=== PATIENT | male | born 1955 ===

== ENCOUNTER 2024-11-22 13:02 | Outpatient (AMB) | payer BC, SELFPAY ==
--- NOTE | 2024-11-22 13:05 | A.OFFPC_ITS ---
Vital Signs 11/22/24 13:16 11/22/24 13:24 Height 5 ft 7.72 in Weight 218 lb 2 oz BMI 33.4 BP 156/56 H 154/54 H Blood Pressure Location Rt brachial Rt brachial Position Sitting Sitting Respiration 16 Pulse 67 Pulse Source Pulse Oximeter Pulse Oximetry (%) 97 Oxygen Delivery Method Room Air Intake Visit Reasons: New Appt New Patient requesitng an PE Intake Note: New patient visit Reporting Manager Required: No Allergies No Known Allergies Allergy (Verified 11/22/24 13:05) Tobacco use date assessed: 11/22/24 Fall risk assessment: No Falls in past year Last assessed Fall Risk: 11/22/24 Dental Screening Dental Screen Date: 11/22/24 Did you have a dental visit in the last 12 months?: Yes Did you have a dental problem in the last 6 months where you did not have access to dental care?: No Was dental information given to patient?: Patient declined HPI New Appt New Patient requesitng an PE HPI Details Patient is a 69-year-old male who presents today to [facility]. He is transferring from [place]. He has a significant past medical history of pancreatitis, chronic kidney disease stage IV with recent MAGDA,, type 2 diabetes, hypertension, hyperlipidemia Endo: Last A1c was 7.9. He is currently on Lantus 25 units in the morning and lispro 3 times a day sliding scale -following with [facility] endocrinology a nd is scheduled for a follow up on 12/03 CGM-6% very hyperglycemic, 35% hyperglycemic, in range 59%, 0% hypoglycemia. 7.4 CV: Blood pressure today in the office is 156/56. He is on metoprolol 150mg daily, amlodipine 10 mg mg day. Cholesterol is controlled with atorvastatin 40 mg. He is on a baby aspirin. Nephro: Following with Dr. Justice and has an appointment for a follow up on 12/13. He had a GI bug in July and then was hospitalized for an MAGDA. Last GFR was 28 following the MAGDA Colonoscopy: Declines due to anal leakage following initial colonoscopy PSA: Overdue LDCT: follows at [facility] and [facility], family history of lung cancer in father AAA screen: States never had PFS Social History Housing: House Patient Tobacco Use Status: Former Tobacco user Cigarette Packs Per Day: 1 Years Smoked: 50 e-Cigarette/Vaping Use: Never Used Second Hand Smoke Exposure: No service: No Current occupational status: retired Cognitive needs: No Hearing needs: Yes (bilateral hearing loss ) Vision needs: Yes (glasses) Questionnaire PHQ-9 Over the last 2 weeks, how often have you been bothered by any of the following problems? 1. Little interest or pleasure in doing things: not at all 2. Feeling down, depressed, or hopeless: not at all 3. Trouble falling or staying asleep, or sleeping too much: not at all 4. Feeling tired or having little energy: not at all 5. Poor appetite or overeating: not at all 6. Feeling bad about yourself - or that you are a failure or have let yourself or your family down: not at all 7. Trouble concentrating on things, such as reading the newspaper or watching television: not at all 8. Moving or speaking so slowly that other people could have noticed. Or the opposite - being so fidgety or restless that you have been moving around a lot more than usual: not at all 9. Thoughts that you would be better off or of hurting yourself in some way: not at all Total score: 0 Depression Screening Interpretation: Negative Depression Screening Done: Yes 34802 - PHQ-9 Billing: Yes Source: Developed by Drs. Doron Medellin, Keyla Rich, Jaziel Timmons and colleagues, with an educational sanjeev from [email or web address]. Thrive Questionnaire Date Thrive assessed: 11/15/24 I am a: Patient What is your living situation today?: I choose not to answer this question Within the past 12 months, did the food you bought not last and you didn't have the money to get more?: I choose not to answer this question Within the past 12 months, did you worry whether your food would run out before you got money to buy more?: I choose not to answer this question Do you have trouble paying for medicines?: I choose not to answer this question Do you have trouble getting transportation to medical appointments?: I choose not to answer this question Do you have trouble paying your heating and electricity bill?: I choose not to answer this question Do you have trouble taking care of your child, family member or friend?: I choose not to answer this question Do you have trouble with day-to-day activities such as bathing, preparing meals, shopping, managing finances, etc.?: I choose not to answer this question Are you currently unemployed and looking for a job?: I choose not to answer this question Are you interested in more education?: I choose not to answer this question Please select the resources that you would like help with: None Currently or been in a relationship where the following occur: I choose not to answer THRIVE Score: 0 AUDIT C Alcohol Use Questionnaire (AUDIT-C) 1. How often do you have a drink containing alcohol?: Never 3. How often do you have six or more drinks on one occasion?: Never Total Score: 0 CHERELLE-7 AMB Questionnaire CHERELLE-7 Date CHERELLE - 7 assessed: 11/22/24 Feeling nervous, anxious, or on edge: 0 = Not at all Not being able to stop or control worryin = Not at all Worrying too much about different things: 0 = Not at all Trouble relaxin = Not at all Being so restless that it is hard to sit still: 0 = Not at all Becoming easily annoyed or irritable: 0 = Not at all Feeling afraid as if something awful might happen: 0 = Not at all Total CHERELLE-7 score (0-4 normal; 5-9 mild; 10-14 moderate; 15-21 severe): 0 Source: Developed by Drs. Doron Medellin, Keyla Rich, Jaziel Timmons and colleagues, with an educational sanjeev from [email or web address]. CHERELLE-7 Assessment Billing CHERELLE-7 Assessment Tool: CHERELLE-7 Assessment 48856 Physical exam (Primary Care) Vital Signs: Last Vital Signs Pulse 67 11/22/24 13:16 Resp 16 11/22/24 13:16 BP 154/56 H 11/22/24 13:24 Pulse Ox 97 11/22/24 13:16 Oxygen Delivery Method Room Air 11/22/24 13:16 BMI result Body Mass Index 33.4 Tobacco/Smoking Status: Tobacco use Status Tobacco use date assessed 11/22/24 11/22/24 13:08 Patient Tobacco Use Status Former Tobacco user 11/22/24 13:20 e-Cigarette/Vaping Use Never Used 11/22/24 13:08 PHQ-9: PHQ-9 Score PHQ-9: Total score 0 11/22/24 13:38 Depression Screening Interpretation: Negative Thrive Assessment: Date of Thrive Assessment Date Thrive assessed 11/15/24 11/22/24 13:08 Currently or been in a relationship where the following occur: I choose not to answer Const Orientation/consciousness: patient oriented x3 HENMT Ears: hearing grossly normal bilaterally Neck Thyroid: Thyroid normal Lymphatic: no lymphadenopathy noted Resp Auscultation: clear to auscultation bilaterally Cardio Rate: regular rate Rhythm: regular rhythm Heart sounds: S1 normal heart sound present and S2 normal heart sound present GI Inspection: Yes normal to inspection Palpation (GI): Soft to palpation and Other GI palpation findings present (nontender, no cva tenderness) Auscultation: normoactive bowel sounds Rectal Exam - Male: Yes deferred Skin General skin exam: no rashes or lesions noted Neuro General: patient oriented x3, gait normal and no focal motor deficits Coding Level of Care Code New Pt Level 4 (08531) Complex EM visit Add On G2211 Diagnoses HTN (hypertension) I10 HLD (hyperlipidemia) E78.5 Type 2 diabetes mellitus with chronic kidney disease, with long-term current use of insulin E11.22; Z79.4 Chronic kidney disease, stage 4 (severe) N18.4 Microalbuminuria due to type 2 diabetes mellitus E11.29; R80.9 Former cigarette smoker Z87.891 Additional Codes CHERELLE-7 Assessment Billing - CHERELLE-7 Assessment Tool: CHERELLE-7 Assessment 20185 ([id number]) PHQ-9 - 71509 - PHQ-9 Billing: Yes ([id number]) Assessment & Plan Assessment & Plan (1) HTN (hypertension): Code(s): I10 - Essential (primary) hypertension Category: Medical Plan: Elevated today above goal. He is going to monitor it for the next couple weeks and let me know. States that blood pressures were previously normal. (2) HLD (hyperlipidemia): Code(s): E78.5 - Hyperlipidemia, unspecified Category: Medical Plan: Lipids and LFTs ordered (3) Type 2 diabetes mellitus with chronic kidney disease, with long-term current use of insulin: Code(s): E11.22 - Type 2 diabetes mellitus with diabetic chronic kidney disease; Z79.4 - terminal carman (current) use of insulin Category: Medical Plan: Being managed by endocrinology. I did discuss with him possibly increasing the long-acting insulin of Lantus up to 30 units but he prefers to wait for endo. (4) Chronic kidney disease, stage 4 (severe): Code(s): N18.4 - Chronic kidney disease, stage 4 (severe) Category: Medical Plan: Seems to be slightly improved from MAGDA. Has follow up with Nephrology (5) Microalbuminuria due to type 2 diabetes mellitus: Code(s): E11.29 - Type 2 diabetes mellitus with other diabetic kidney complication; R80.9 - Proteinuria, unspecified Category: Medical Plan: As above (6) Former cigarette smoker: Code(s): Z87.891 - Personal history of nicotine dependence Category: Social Hx Plan: AAA screen ordered Following with [facility] low-dose CAT scan program. States that he does not need a new order for this. Orders: Orders TSH reflex Free T4 Today E11.22 - Type 2 diabetes mellitus with diabetic chronic kidney disease, E11.29 - Type 2 diabetes mellitus with other diabetic kidney complication, E78.5 - Hyperlipidemia, unspecified, I10 - Essential (primary) hypertension, N18.4 - Chronic kidney disease, stage 4 (severe), R80.9 - Proteinuria, unspecified, Z79.4 - terminal carman (current) use of insulin, Z87.891 - Personal history of nicotine dependence Comprehensive Met. Panel Today E11.22 - Type 2 diabetes mellitus with diabetic chronic kidney disease, E11.29 - Type 2 diabetes mellitus with other diabetic kidney complication, E78.5 - Hyperlipidemia, unspecified, I10 - Essential (primary) hypertension, N18.4 - Chronic kidney disease, stage 4 (severe), R80.9 - Proteinuria, unspecified, Z79.4 - correction (current) use of insulin, Z87.891 - Personal history of nicotine dependence Prostate Specific Antigen Scr Today E11.22 - Type 2 diabetes mellitus with diabetic chronic kidney disease, E11.29 - Type 2 diabetes mellitus with other diabetic kidney complication, E78.5 - Hyperlipidemia, unspecified, I10 - Essential (primary) hypertension, N18.4 - Chronic kidney disease, stage 4 (severe), R80.9 - Proteinuria, unspecified, Z01.89 - Encounter for other specified special examinations, Z79.4 - terminal carman (current) use of insulin, Z87.891 - Personal history of nicotine dependence US abdominal aortic aneurysm Today I10 - Essential (primary) hypertension, Z87.891 - Personal history of nicotine dependence Lipid Panel Today E11.22 - Type 2 diabetes mellitus with diabetic chronic kidney disease, E11.29 - Type 2 diabetes mellitus with other diabetic kidney complication, E78.5 - Hyperlipidemia, unspecified, I10 - Essential (primary) hypertension, N18.4 - Chronic kidney disease, stage 4 (severe), R80.9 - Proteinuria, unspecified, Z79.4 - correction (current) use of insulin, Z87.891 - Personal history of nicotine dependence Complete Blood Count Auto Diff Today E11.22 - Type 2 diabetes mellitus with diabetic chronic kidney disease, E11.29 - Type 2 diabetes mellitus with other diabetic kidney complication, E78.5 - Hyperlipidemia, unspecified, I10 - Essential (primary) hypertension, N18.4 - Chronic kidney disease, stage 4 (severe), R80.9 - Proteinuria, unspecified, Z79.4 - terminal carman (current) use of insulin, Z87.891 - Personal history of nicotine dependence
[2024-11-22 13:16] VITALS: BP 156/56; PULSE 67; RESP 16; O2SAT 97; BMI 33.4
[2024-11-22 13:24] VITALS: BP 154/54
--- OUTSIDE RECORDS SUMMARY | 2024-11-22 14:11 | XMS_ITS | Clinical Summary ---
Author Organization [employer] Address [address] [place] [address] Care Team Providers Care Account Supervisor Name Role Phone Unavailable Primary Care Provider Unavailabl e Allergies No known active allergies Medications omega-3 (Fish Oil) 1000 MG capsule as directed Orally Active losartan (Cozaar) 100 MG tablet 1 tablet in the morning. 0 Active glimepiride (Amaryl) 4 MG tablet 1 tablet in the morning and 1 tablet in the evening. 0 Active metoprolol succinate XL (Toprol XL) 100 MG 24 hr tablet 1 tablet in the morning. 0 Active atorvastatin (Lipitor) 80 MG tablet 1 tablet in the morning. 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 e yes 06/14/2023 Tobacco use disorder 06/13/2023 06/13/2023 Hyperlipidemia 06/13/2023 06/13/2023 Morbid obesity 06/13/2023 06/13/2023 Anxiety disorder 06/13/2023 06/13/2023 Avitaminosis D 06/13/2023 06/13/2023 Carpal tunnel syndrome 06/13/2023 Obstructive sleep apnea 06/13/2023 06/13/20 Type 2 diabetes mellitus without complication 06/13/2023 Nondependent alcohol abuse, episodic 06/13/2023 06/13/2023 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 06/13/2023 06/13/2023 Cataract, nuclear sclerotic, both eyes 06/13/2023 Bilateral presbyopia 06/13/2023 06/13/2023 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 06/13/2023 Family History Medical History Relation Name Comments Cataracts Mother Relation Name Status Comments Mother Social History Tobacco Use Types Packs/Day Years Used Date Smoking Tobacco: Every Day Cigarettes Tobacco Cessation:Ready to Q uit: Not Asked; Counseling Given: Not Answered Comments:Smoked for 30 years Sex and Gender Information Value Date Recorded Sex Assigned at Male 06/10/2023 10:36 AM EST Legal Sex Male 8:35 PM EDT Gender Identity Male 06/10/2023 10:36 AM EST Sexual Orientation Straight 06/10/2023 10 :36 AM EST Last Filed Vital Signs Vital Sign Reading Time Taken Comments Blood Pressure 142/70 06/14/2023 10:30 AM EST Pulse - - Temperature 36.2 ??C (97.2 ??F) 06/14/2023 10:[address] Respiratory Rate - - Oxygen Saturation - - Inhaled Oxygen Concentration - - Weight - - Height - - Body Mass Index - - Plan of Treatment Health Maintenance Due Date Last Done Comments CT Colonography 1955 Colonoscopy 1955 Colorectal Cancer Screening 1955 Depression Screening 1955 Diabetes: Hemoglobin A1C 1955 FIT DNA/Cologuard 1955 FIT 1955 FOBT 1955 Lipid Panel 1955 SDOH Screening 1955 Sigmoidoscopy 1955 Diabetes: Foot Exam 1965 Alcohol/Substance Use Screening 1967 Tobacco Screening 1967 Hepatitis C Screening 1973 Diabetes: Urine Protein Screening 1974 Zoster Vaccines (1 of 2) 2005 Pneumococcal Vaccine: 50+ Years (2 of 2 - PCV) 05/06/2011 05/06/2010, 04/17/2010 DTaP/Tdap/Td Vaccines (2 - Td or Tdap) 02/12/2024 02/11/2014 COVID-19 Vaccine (3 - season) 2024 03/13/2021, 02/20/2021 Influenza Vaccine (#1) 2024 8, 05/04/2016, 04/15/2015, Additional history exists Eye Exam 06/14/2025 06/14/2023, 05/19, 06/14/2023, Additional history exists RSV Patients and Patients Aged 60 years or older (1 - 1-dose 75+ series) 2030 HIB Vaccines Aged Out No longer eligi ble based on patient's age to complete this topic HPV Vaccines Aged Out No longer eligi ble based on patient's age to complete this topic Hepatitis A Vaccines Aged Out No long er eligible based on patient's age to complete this topic Hepatitis B Vaccines Aged Out No long er eligible based on patient's age to complete this topic IPV Vaccines Aged Out No longer eligi ble based on patient's age to complete this topic Meningococcal Vaccine Aged Out No michael alessia eligible based on patient's age to complete this topic RSV under 20 months Aged Out No longe r eligible based on patient's age to complete this topic Rotavirus Vaccines Aged Out No longer eligible based on patient's age to complete this topic Insurance [facility] Care Teams Account Supervisor Relationship Specialty Start Date End Date JESUS SERRANO DO [address] [id number] Primary Care Provider 06/13/23
--- OUTSIDE RECORDS SUMMARY | 2024-11-22 14:11 | XMS_ITS | Clinical Summary ---
Author Organization [facility] [address] [facility] lding Address [address] [place] [address] Phone Care Team Providers Care Steam Blocker Name Role Phone Sarah Long MD Primary Care Provider Allergies No known active allergies Medications alcohol swabs pads, medicated Apply 1 Each topically 2 times daily as needed (insulin use). 02/18/20 20 Active Autolet (OneTouch Delica Plus Lanc Dev) lancing device Use to check blood sugar twice daily. 01/12/20 17 Active blood glucose control, normal (OneTouch Ultra Control) solution Use to calibrate meter. 06/30/20 16 Active blood-glucose meter (ONETOUCH VERIO IQ METER MISC) Test bs tid 10/27/19 22 Active pen needle, diabetic 32 gauge x 5/32 needle USE WITH INSULIN DAILY 09/26/19 24 Active aspirin 81 mg EC tablet Take 81 mg by mouth daily. Active blood sugar diagnostic (OneTouch Verio test strips) test strip CHECK BLOOD SUGAR 2 TO 3 TIMES DAILY AND NEEDED FOR LOW BLOOD SUGARS 400 each 06/12/20 24 Active albuterol HFA (PROAIR HFA ; PROVENTIL HFA ; VENTOLIN HFA) 90 mcg/actuation inhaler Inhale 2 Puffs into the lungs every 4 hours as needed for Cough or Wheezing. 25.5 g 06/12/20 24 Active atorvastatin (LIPITOR) 40 mg tablet Take 1 tablet (40 mg total) by mouth 1 (one) time each day. 90 each 06/12/20 24 Active metoprolol succinate (TOPROL-XL) 25 mg 24 hr tablet Take 2 tablets (50 mg total) by mouth 1 (one) time each day. 360 tablet 06/12/20 24 Active sodium bicarbonate 650 mg tablet Take 1 tablet (650 mg total) by mouth 2 (two) times a day. Per 08/24/19 25 Active insulin glargine U-300 conc (TOUJEO MAX SoloStar) 300 unit/mL (3 mL) CONCENTRATED injection penIndications:T ype 2 diabetes mellitus without complication, with jail current use of insulin pump ([facility] V24, [facility] V28) Take 10 units every morning 08/24/19 25 Active insulin lispro (HumaLOG KwikPen) 100 unit/mL injection pen Per SSI. BS 100-149- take 6units, 150-199- 7; 200-249-8, 250-299-9, 300-349-10,35 1-241-25nrjmm 08/24/19 25 026 Active metoprolol succinate (TOPROL-XL) 100 mg 24 hr tablet Take 1 tablet (100 mg total) by mouth 1 (one) time each day. Do not crush or chew. 90 tablet 09/20/19 25 Active amLODIPine (NORVASC) 5 mg tablet TAKE 2 TABLETS BY MOUTH 1 TIME EACH DAY. 180 tablet 10/27/19 25 Active amLODIPine (NORVASC) 5 mg tablet Take 2 tablets (10 mg total) by mouth 1 (one) time each day. 180 tablet 07/30/19 25 025 Discontinued Active Problems Problem Noted Date Diagnosed Date Type 2 diabetes mellitus wit hout complication, with jail current use of insulin pump ([facility] V24, [facility] V28) 10/13/2023 Renal cyst 12/23/2021 CKD (chronic kidney disease) stage 3, GFR 30-59 ml/min ([facility] V24, [facility] V28) 09/20/2018 Coronary artery calcification seen on CAT scan 1 08/22/2013 Hepatic steatosis 06/21/2014 Overview (06/08/2024): Noted on CT scan Diverticulosis 06/18/2014 Overview (06/08/2024): Noted on screening CT Pulmonary emphysema ([facility] V24, [facility] V28) 1 08/20/2012 Overview (06/08/2024): On chest CT IMO update Lung nodule 06/04/2013 Overview (06/08/2024): Stable on CT 2013 <4mm; micronodule Obstructive sleep apnea 08/01/2012 Overview (06/08/2024): CPAP 17-18 cm Poorly controlled type 2 santhosh betes mellitus ([facility] V24, [facility] V28) 08/06/2011 Overview (06/08/2024): Labs from [facility] are scanned Vitamin D deficiency 08/06/2011 Hypertension, essential 06/17/2011 Hyperlipidemia with target LDL less than 70 07/2010 Overview (06/08/2024): IMO update Alcohol abuse 05/14/2011 Mixed hyperlipidemia 05/14/2011 Encounters Date Type Department Care Team Description 09/18/2024 10:38 AM EST - 09/18/2024 11:59 PM EST Hospital Encounter [facility] CT Scan [address] [place] [address] Encounter for screening for malignant neoplasm of respiratory organs; Nicotine dependence, cigarettes, uncomplicated Discharge Disposition: Home or Self Care from Last 3 Months Immunizations Name Administration Dates Next Due Influenza Quadravalent, MDCK , 0.5ml, preservative free (Flucelvax) 6mo and older 05/23/2018 Influenza Quadravalent, MDCK , 0.5ml, with preservative (Flucelvax) 6mo and older 05/16/2017 Influenza trivalent, 0.5mL ( Fluad) 65yo and older 04/19/2024 Influenza trivalent, 0.5mL, preservative free (Fluarix; FluLaval; Fluzone) ages 6mo and older (Afluria) 3 years and older 05/04/2016,04/15/2015,06/18/2014 Pfizer SARS-CoV-2 COVID-19, mRNA, LNP-S, preservative free 03/13/2021,02/20/2021 Pneumococcal conjugate 20 va lent (Prevnar 20, PCV 20) 2mo and older 10/13/2023 Pneumococcal polysaccharide 23 valent (Pneumovax 23) 2yo and older 04/17/2010 Tdap Tetanus diptheria acell ular pertussis (Boostrix; Adacel) 7yo and older 02/11/2014 Surgical History Surgery Date Site/Laterality Comments OTHER SURGICAL HISTORY 2007 PROCEDURE: MRA OF HEAD, NECK; COMMENT: prox l cerebral artery stenosis, rest clear OTHER SURGICAL HISTORY 2007 PROCEDURE: SONO ABDOMEN COMPLETE; COMMENT: fatty liver, renal cyst ? hepatomegaly OTHER SURGICAL HISTORY 2006 PROCEDURE: CO ECHO TRANSTHORAC R-T 2D W/WO M-MODE REC COMP; COMMENT: ps/pr mild, nl ef Medical History Medical History Date Comments Diabetes mellitus (CMS/HCC V 24, CMS/HCC V28) 05/14/2011 DX:Diabetes mellitus (HCC) Hypertriglyceridemia 05/14/2011 DX:Hypertri glyceridemia Hypertension 06/17/2011 DX:Hypertension Alcohol abuse DX:Alcohol abuse Tobacco dependence DX:Tobacco de pendence Type II diabetes mellitus, uncontrolled DX:Type II diabetes mellitus, uncontrolled TK (obstructive sleep apnea) 2007 DX :TK (obstructive sleep apnea); COMMENT: nasal cpap 16 Fatty liver 2007 DX:Fatty liver; COMMENT: ? hepatomegaly Lyme disease 1999 DX:Lyme disease; COMMENT: treated Pancreatitis DX:Pancreatitis Vitamin deficiency DX:Vitamin de ficiency Vitamin D deficiency 08/06/2011 DX:Vitamin D deficiency Family History Medical History Relation Name Comments Alcohol/Drug Father Lung cancer Father cause of Other: Kidney disease Father Other: Lung disease Father Breast cancer Mother 01/2020 Other: vertigo Sister 1 Thyroid disease Sister 1 No Known Problems Sister 2 Elsa Relation Name Status Comments Father (Age 59) Mother Sister 1 Alive Sister 2 Elsa Alive Social History Tobacco Use Types Packs/Day Years Used Date Smoking Tobacco: Every Day Cigarettes 2 55.3 Started: [birth year]/18/1969 Smokeless Tobacco: Never Tobacco Cessation:Ready to Q uit: Not Asked; Counseling Given: Not Answered Alcohol Use Standard Drinks/Week Comments Yes 30 (1 standard drink = 0.6 oz pu re alcohol) Housing Instability Answer Date Recorde d Are you worried that in the next 2 months you may not have stable housing? Patient declined 07/28/2024 Food Access & Nutrition Answer Date Rec orded Do you have access to a vari ety of food including fruits and vegetables? Patient declined 07/28/2024 Access to Healthcare Answer Date Record ed Within the last 3 months, ho w many times did you visit the emergency department for your medical care? 0 07/28/2024 Health Literacy Answer Date Recorded How often do you need to hav e someone help you when you read instructions, pamphlets, or other written material from your doctor or pharmacy? Patient declined 07/28/2024 Caregiver: How often do you need to have someone help you when you read instructions, pamphlets, or other written material from your doctor or pharmacy? Not on file 025 Financial Risk Answer Date Recorded How hard is it for you to pa y for the very basics like food, housing, medical care, and air conditioning / heating? Patient declined 07/28/2024 Transportation Answer Date Recorded Has the lack of transportati on kept you from meetings, work, or from getting things needed for daily living? Patient declined 07/28/2024 Has the lack of transportati on kept you from medical appointments or from getting medications? Patient declined 07/28/2024 Social Isolation Answer Date Recorded How often do you feel lonely or isolated from those around you? Patient declined 07/28/2024 Food Risk Answer Date Recorded Within the past 12 months we worried whether our food would run out before we got money to buy more. Patient declined 025 Within the past 12 months th e food we bought just didn't last and we didn't have money to get more. Patient declined 07/18 Dependent Care Answer Date Recorded Do you need help finding or paying for care for your loved ones. For example, early childhood lead teacher or elderly care for an older adult? Patient declined 07/28/2024 Education Answer Date Recorded Do you think completing more education or training, like finishing a GED, going to college, or learning a trade, would be helpful for you? Patient declined 07/28/2024 Employment and Income Answer Date Recor ded During the last four weeks, have you been actively looking for work? Patient declined 07/28/2024 Living Situation Answer Date Recorded What is your living situation? 0 07/28/2024 Sex and Gender Information Value Date Recorded Sex Assigned at Male 06/07/2024 5:40 AM EST Legal Sex Male 1:51 AM EST Gender Identity Male 06/07/2024 5:40 AM EST Sexual Orientation Straight 06/07/2024 5: 40 AM EST Obstetrics History Last Filed Vital Signs Vital Sign Reading Time Taken Comments Blood Pressure 147/59 08/24/2024 10:32 AM EST Pulse 54 08/24/2024 10:32 AM EST Temperature 35.9 ??C (96.7 ??F) 08/24/2024 10:[address] Respiratory Rate 16 08/24/2024 10:32 AM EST Oxygen Saturation - - Inhaled Oxygen Concentration - - Weight 99.5 kg (219 lb 6.4 oz) 08/24/2024 10:32 AM EST Height 175.3 cm (5' 9.02 ) 08/24/2024 10:[address] Body Mass Index 32.38 08/24/2024 10:32 AM EST Plan of Treatment Health Maintenance Due Date Last Done Comments Hepatitis A Vaccines (1 of 2 - Risk 2-dose series) 1974 Zoster Vaccines (1 of 2) 2005 RSV Immunization Adult Patients (1 - Risk 60-74 years 1-dose series) 2015 COVID-19 Vaccine (3 - Pfizer risk series) 04/10/2021 03/13/2021, 02/20/2021 Abdominal Aortic Aneurysm (AAA) Screen 06/26/2022 Medicare Annual Wellness Visit 06/26/2022 Diabetes: Annual Urine Albumin-Creatinine Ratio (uACR) 07/30/2023 07/30/2022 Colorectal Cancer Screening: Colonoscopy 09/07/2023 09/07/2018 Diabetes: Blood Sugar Control Test (HGBA1C) 01/11/2024 07/12/2023 DTaP,Tdap,and Td Vaccines (2 - Td or Tdap) 02/12/2024 02/11/2014 Diabetes: Annual Retina Eye Exam 06/13/2024 06/13/2023 Diabetes: Annual Foot Exam 10/12/2024 10/13/2023 Depression Screening 07/28/2025 07/28/2024 Social Influencers of Health Screening 07/28/2025 07/28/2024 Falls Risk Assessment 07/30/2025 07/30/2024 Diabetes: Annual GFR (Glomerular Filtration Rate) 08/22/2025 08/22/2024, 08/18/2024, 10/05/2023 Hypertension/CHF/CAD Annual BMP Blood Test 08/22/2025 08/22/2024, 08/18/2024, 10/05/2023 Lung Cancer Screening (Low Dose CT) 09/18/2025 09/18/2024, 07/13/2023, 06/17/2022, Additional history exists Cholesterol Screening (Lipid Panel) 04/30/2027 04/30/2022 Hepatitis C Screening Completed 02/07/2017 Pneumococcal Vaccine: 50+ Years Completed 10/13/2023, 04/17/2010 Influenza Vaccine Completed 04/19/2024, , 05/16/2017, Additional history exists HIB Vaccines Aged Out No longer eligi [...] on patient's age to complete this topic MMR Vaccines Aged Out No longer eligi ble based on patient's age to complete this topic Meningococcal ACWY Vaccine Aged Out N o longer eligible based on patient's age to complete this topic Meningococcal B Vaccine Aged Out No l onger eligible based on patient's age to complete this topic RSV Immunization Patients Under 20 months Aged Out No longer eligible based on patient's age to complete this topic Varicella Vaccines Aged Out No longer eligible based on patient's age to complete this topic Procedures Procedure Name Priority Date/Time Associated Diagnosis Comments CT LUNG SCREENING Routine 09/18/2024 10: 49 AM EST Encounter for screening for malignant neoplasm of respiratory organs Nicotine dependence, cigarettes, uncomplicated DIABETES FOOT EXAM Routine 10/13/2023 ANNUAL BMP BLOOD TEST Routine 10/05/2023 HEMOGLOBIN A1C Routine 07/12/2023 DIABETES EYE EXAM Routine 06/13/2023 URINE ALBUMIN CREATININE RATIO Routine 07/30/2022 LIPID PANEL Routine 04/30/2022 COLONOSCOPY Routine 09/07/2018 HEPATITIS C SCREENING Routine 02/07/2017 from Last 3 Months or Most Recently Relevant to Health Maintenance Results * CT Lung Screening (09/18/2024 10:49 AM EST) Anatomical Region Laterality Modality Chest Computed Tomogra phy 09/19/2024 4:11 PM EST Impressions 09/19/2024 4:18 PM EST Impression: No suspicious pulmonary nodule. No significant change. Lung-RADS Category: ??Lung-RADS 1: No nodules or definitely benign nodules. Continue annual screening with Low Dose Chest CT in 12 months. Telerad CAROL ([id number]) -------- FINAL REPORT -------- Dictated By: Dorys Williamson Dictated Date: 09/19/2024 16:11 ET Assigned Physician: Dorys Williamson Reviewed and Electronically Signed By: Dorys Williamson Signed Date: 09/19/2024 16:18 ET Workstation ID: [id number] Transcribed By: Self Edit Transcribed Date: 09/19/2024 16:11 ET Narrative 09/19/2024 4:18 PM EST History: ??69 year-old 99 pack-year current smoker, asymptomatic, for lung cancer screening. Father had lung carcinoma. Mother had breast carcinoma. Comparison: 06/30/23 Technique: Helical volumetric imaging of the thorax was performed, using low- dose technique, without IV contrast. DLP: 169.48 mGy/cm ??CTDIvol: 4.83 mGy [employer] VCT Iterative reconstruction technique Findings: Lungs and Airways: The trachea and central bronchial tree remain patent. Diffuse bronchial wall thickening is again seen, consistent with bronchitis in this setting. A diffuse pattern of faint centrilobular groundglass opacity is again seen, favoring the upper lobes, consistent with respiratory bronchiolitis, unchanged. No suspicious developing pulmonary nodules are seen. Pleura: No pleural effusions are seen. Trace pericardial effusion versus pericardial thickening, unchanged. Base of neck, mediastinum and heart: The heart remains normal in size. Three- vessel coronary artery calcification is again noted. No developing thoracic lymphadenopathy is seen. Soft tissues: The overlying soft tissues are unremarkable. Abdomen: This study was performed without contrast and with lower than standard dose. These factors reduce the sensitivity for detection of small lesions in the upper abdomen. No significant abnormality is seen. Thick, flowing hyperostosis is seen along the anterior aspect of the thoracic spine, suggestive of diffuse idiopathic skeletal hyperostosis (DISH). Procedure Note Dorys Williamson MD - 09/19/2024 History: 69 year-old 99 pack-year current smoker, asymptomatic, for lungcancer screening. Father had lung carcinoma. Mother had breastcarcinoma. Comparison: 06/30/23 Technique: Helical volumetric imaging of the thorax was performed, usinglow-dose technique, without IV contrast. DLP: 169.48 mGy/cm CTDIvol: 4.83 mGy [employer] VCT Iterative reconstruction technique Findings: Lungs and Airways: The trachea and central bronchial tree remain patent.Diffuse bronchial wall thickening is again seen, consistent withbronchitis in this setting. A diffuse pattern of faint centrilobulargroundglass opacity is again seen, favoring the upper lobes, consistentwith respiratory bronchiolitis, unchanged. No suspicious developing pulmonary nodules are seen. Pleura: No pleural effusions are seen. Trace pericardial effusion versuspericardial thickening, unchanged. Base of neck, mediastinum and heart: The heart remains normal in size.Three- vessel coronary artery calcification is again noted. No developingthoracic lymphadenopathy is seen. Soft tissues: The overlying soft tissues are unremarkable. Abdomen: This study was performed without contrast and with lower thanstandard dose. These factors reduce the sensitivity for detection of smalllesions in the upper abdomen. No significant abnormality is seen. Thick, flowing hyperostosis is seen along the anterior aspect of thethoracic spine, suggestive of diffuse idiopathic skeletal hyperostosis(DISH). IMPRESSION: Impression: No suspicious pulmonary nodule. No significant change. Lung-RADS Category: Lung-RADS 1: No nodules or definitely benign nodules.Continue annual screening with Low Dose Chest CT in 12 months. Telerad PA ([id number]) -------- FINAL REPORT -------- Dictated By: Dorys Williamson Dictated Date: 09/19/2024 16:11 ET Assigned Physician: Dorys Williamson Reviewed and Electronically Signed By: Dorys Williamson Signed Date: 09/19/2024 16:18 ET Workstation ID: [id number] Transcribed By: Self Edit Transcribed Date: 09/19/2024 16:11 ET Result [facility] Deborah Diaz MD IMG CT PROCEDURES Final Result * Diabetes Foot Exam (10/13/2023) [facility] Diabetes: Annual Foot Exam Abstracted Result [facility] HEALTH MAINTENANCE Final Result * Annual BMP Blood Test (10/05/2023) [facility] Annual BMP Blood Test Abstracted Result [facility] HEALTH MAINTENANCE Final Result * Hemoglobin A1c (07/12/2023) [facility] Hemoglobin A1C 0.0 % Comment:No Interpretation Blood Venous blood specimen / Unknown Result [facility] LAB BLOOD ORDERABLES Shania l Result * Diabetes Eye Exam (06/13/2023) [facility] Diabetes: Annual Retina Eye Exam Abstracted Result [facility] HEALTH MAINTENANCE Final Result * Urine Albumin Creatinine Ratio (07/30/2022) [facility] Urine Albumin Creatinine Ratio Abstracted Result [facility] HEALTH MAINTENANCE Final Result * Lipid panel (04/30/2022) [facility] LDL/HDL Ratio 0 Comment:No Interpretation Triglycerides 0 mg/dL Comment:No Interpretation Cholesterol 0 mg/dL Comment:No Interpretation HDL 0 mg/dL Comment:No Interpretation LDL Cholesterol 0 mg/dL Comment:No Interpretation Blood Venous blood specimen / Unknown Historical Provider LAB BLOOD ORDERABLES Shania l Result * Colonoscopy (09/07/2018) Colonoscopy No Interpretation , Abstracted Anatomical Region Laterality Modality Other Historical Provider HEALTH MAINTENANCE Final Result * Hepatitis C Screening (02/07/2017) Hepatitis C Screening Abstracted Historical Provider HEALTH MAINTENANCE Final Result from Last 3 Months or Most Recently Relevant to Health Maintenance Insurance [facility] [place] [facility] MEDICARE ADVANTAGE Advance Directives Documents on File Type Date Recorded Patient Management Trainer Expl anation Health Care Decision (hx) 06/30/2023 LINDA MAHMOOD DIRECTIVE Care Teams Steam Blocker Relationship Specialty Start Date End Date Sarah Long MD [address] [place] [id number] PCP - General 01/16/22
--- OUTSIDE RECORDS SUMMARY | 2024-11-22 14:11 | XMS_ITS | Clinical Summary ---
Author Organization [facility] Address [address] [place] [address] Phone Care Team Providers Care [employer] Name Role Phone Sarah Long MD Primary Care Provider Allergies No known active allergies Medications atorvastatin (LIPITOR) 40 MG tablet Take 40 mg by mouth 1 (one) time each day 06/06/2024 Active amLODIPine (NORVASC) 5 MG tablet Take 10 mg by mouth in the morning. 07/30/2024 Active metoprolol succinate XL (TOPROL-XL) 100 MG 24 hr tablet Take 100 mg by mouth 1 (one) time each day DO NOT CRUSH OR CHEW Active metoprolol succinate XL (TOPROL XL) 25 MG 24 hr tablet 50 mg 1 (one) time each day Active insulin glargine (LANTUS) 100 UNIT/ML injection Inject 10 Units under the skin every night Active Insulin Admin Supplies ([place] [address] Ullin Pen Cap/Lispro) misc Active sodium polystyrene sulfonate (KAYEXALATE) powder Take 15 g by mouth every other day 675 g 3 08/23/2024 08/23/19 26 Active sodium bicarbonate 650 MG tablet Take 1 tablet (650 mg total) by mouth in the morning and 1 tablet (650 mg total) in the evening. 180 tablet 3 08/23/2024 08/23/19 26 Active ergocalciferol (Drisdol) 1.25 MG (76972 UT) capsule Take 1 capsule (50,000 Units total) by mouth 1 (one) time per week 12 capsule 1 08/23/2024 08/23/19 26 Active insulin lispro protamine-insuli n lispro (HumaLOG 50-50) (50-50) 100 UNIT/ML inj pen Inject under the skin 2 (two) times a day before meals Active aspirin 81 MG chewable tablet Chew 81 mg 1 (one) time each day Active Active Problems Problem Noted Date Diagnosed Date Acute nontraumatic kidney injury 08/23/2024 Stage 3a chronic kidney disease 08/23/2024 Type 2 diabetes mellitus wit h diabetic chronic kidney disease 08/23/2024 Hyperkalemia 08/23/2024 Vitamin D deficiency 08/23/2024 Metabolic acidosis 08/23/2024 Encounters Date Type Department Care Team Description 11/04/2024 Orders Only [facility] [address] [address] Robby Justice MD Other acute kidney failure (HCC); Stage 3a chronic kidney disease (HCC); Type 2 diabetes mellitus with diabetic chronic kidney disease (HCC); Hyperkalemia; Vitamin D deficiency, not otherwise specified; Other acidosis; Anemia in chronic kidney disease 09/06/2024 1:30 PM EST Office Visit [facility] [address] [phone] Robby Justice MD Other acute kidney failure (HCC) (Primary Dx); Stage 3a chronic kidney disease (HCC); Type 2 diabetes mellitus with diabetic chronic kidney disease (HCC); Hyperkalemia; Vitamin D deficiency, not otherwise specified; Other acidosis; Anemia in chronic kidney disease 09/03/2024 Documentation Only [facility] [address] [phone] Meliza Pennington MA from Last 3 Months Social History Tobacco Use Types Packs/Day Years Used Date Smoking Tobacco: Never Assessed Sex and Gender Information Value Date Recorded Sex Assigned at Not on file Legal Sex Male 2:08 PM EDT Gender Identity Not on file Sexual Orientation Not on file Last Filed Vital Signs Vital Sign Reading Time Taken Comments Blood Pressure 124/58 09/06/2024 1:26 PM EST Pulse 50 09/06/2024 1:26 PM EST Temperature - - Respiratory Rate - - Oxygen Saturation 98% 08/23/2024 1:54 PM EST Inhaled Oxygen Concentration - - Weight 95.7 kg (211 lb) 09/06/2024 1:26 PM EST Height - - Body Mass Index - - Plan of Treatment Upcoming Encounters Date Type Department Care Team (Late st Contact Info) Description 12/13/2024 2:00 PM EDT Office Visit [facility] [address] [place] [address] Robby Justice MD [address] [address] Health Maintenance Due Date Last Done Comments Colorectal Cancer Screening: Annual FOBT 2004 Colorectal Cancer Screening: Colonoscopy 2004 Colorectal Cancer Screening: Sigmoidoscopy 2004 Pneumococcal Vaccine: 50+ Ye ars (2 of 2 - PCV) 04/17/2011 04/17/2010 Hepatitis B Vaccine (1 of 3 - Risk 3-dose series) 2015 Diabetes: Hemoglobin A1C 08/17/2024 07/12/2023 Diabetes: Ophthalmology Exam 08/17/2024 06/14/2023 Diabetes: Pedal Pulse Checked 08/17/2024 Diabetes: Sensory Foot Exam 08/17/2024 Diabetes: Visual Foot Exam 08/17/2024 Influenza Vaccine Completed 04/19/2024, , 05/16/2017, Additional history exists Procedures Procedure Name Priority Date/Time Associated Diagnosis Comments PTH, INTACT Routine 11/06/2024 10:22 AM EDT Other acute kidney failure (HCC) Stage 3a chronic kidney disease (HCC) Type 2 diabetes mellitus with diabetic chronic kidney disease (HCC) Hyperkalemia Vitamin D deficiency, not otherwise specified Other acidosis Anemia in chronic kidney disease VITAMIN D 25 HYDROXY Routine 11/06/2024 10:22 AM EDT Other acute kidney failure (HCC) Stage 3a chronic kidney disease (HCC) Type 2 diabetes mellitus with diabetic chronic kidney disease (HCC) Hyperkalemia Vitamin D deficiency, not otherwise specified Other acidosis Anemia in chronic kidney disease PROTEIN / CREATININE RATIO, URINE Routine 11/06/2024 10:22 AM EDT Other acute kidney failure (HCC) Stage 3a chronic kidney disease (HCC) Type 2 diabetes mellitus with diabetic chronic kidney disease (HCC) Hyperkalemia Vitamin D deficiency, not otherwise specified Other acidosis Anemia in chronic kidney disease RENAL FUNCTION PANEL Routine 11/06/2024 10:22 AM EDT Other acute kidney failure (HCC) Stage 3a chronic kidney disease (HCC) Type 2 diabetes mellitus with diabetic chronic kidney disease (HCC) Hyperkalemia Vitamin D deficiency, not otherwise specified Other acidosis Anemia in chronic kidney disease IRON PANEL (FE, TIBC, TSAT) Routine 11/06/2024 10:22 AM EDT Other acute kidney failure (HCC) Stage 3a chronic kidney disease (HCC) Type 2 diabetes mellitus with diabetic chronic kidney disease (HCC) Hyperkalemia Vitamin D deficiency, not otherwise specified Other acidosis Anemia in chronic kidney disease FERRITIN Routine 11/06/2024 10:22 AM EDT Other acute kidney failure (HCC) Stage 3a chronic kidney disease (HCC) Type 2 diabetes mellitus with diabetic chronic kidney disease (HCC) Hyperkalemia Vitamin D deficiency, not otherwise specified Other acidosis Anemia in chronic kidney disease CBC AND DIFFERENTIAL Routine 11/06/2024 10:22 AM EDT Other acute kidney failure (HCC) Stage 3a chronic kidney disease (HCC) Type 2 diabetes mellitus with diabetic chronic kidney disease (HCC) Hyperkalemia Vitamin D deficiency, not otherwise specified Other acidosis Anemia in chronic kidney disease FERRITIN Routine 09/03/2024 3:35 PM EST Other acute kidney failure (HCC) Hyperkalemia IRON PANEL (FE, TIBC, TSAT) Routine 09/03/2024 3:35 PM EST Other acute kidney failure (HCC) Hyperkalemia RENAL FUNCTION PANEL Routine 09/03/2024 3:35 PM EST Other acute kidney failure (HCC) Hyperkalemia PROTEIN / CREATININE RATIO, URINE Routine 08/25/2024 11:51 AM EST Other acute kidney failure (HCC) Stage 3a chronic kidney disease (HCC) Type 2 diabetes mellitus with diabetic chronic kidney disease (HCC) Hyperkalemia Vitamin D deficiency, not otherwise specified Metabolic acidosis, not otherwise specified VITAMIN D 25 HYDROXY Routine 08/25/2024 11:51 AM EST Other acute kidney failure (HCC) Stage 3a chronic kidney disease (HCC) Type 2 diabetes mellitus with diabetic chronic kidney disease (HCC) Hyperkalemia Vitamin D deficiency, not otherwise specified Metabolic acidosis, not otherwise specified PTH, INTACT Routine 08/25/2024 11:51 AM EST Other acute kidney failure (HCC) Stage 3a chronic kidney disease (HCC) Type 2 diabetes mellitus with diabetic chronic kidney disease (HCC) Hyperkalemia Vitamin D deficiency, not otherwise specified Metabolic acidosis, not otherwise specified RENAL FUNCTION PANEL Routine 08/25/2024 11:51 AM EST Other acute kidney failure (HCC) Stage 3a chronic kidney disease (HCC) Type 2 diabetes mellitus with diabetic chronic kidney disease (HCC) Hyperkalemia Vitamin D deficiency, not otherwise specified Metabolic acidosis, not otherwise specified from Last 3 Months Results * Iron Panel (Fe, TIBC, TSAT) (11/06/2024 10:22 AM EDT) Only the most recent of2 resultswithin the time period is included. TIBC 290 250 - 450 ug/dL [facility] UIBC 222 111 - 343 ug/dL [facility] Iron 68 38 - 169 ug/dL [facility] Iron Saturation (TSat) 23 15 - 55 % [facility] Blood (Blood, Venous) 11/06/2024 10:22 AM EDT 11/06/2024 us Robby Justice MD LAB BLOOD ORDERABLES Final Resu lt [facility] [address] [place] [address] * (ABNORMAL) Urine Protein / creatinine ratio (11/06/2024 10:22 AM EDT) Only the most recent of2 resultswithin the time period is included. Creatinine, Ur 86.6 Not Estab. mg/dL [facility] Protein, Ur 86.1 Not Estab. mg/dL [facility] Urine Protein/Creati nine Ratio 994(H) 0 - 200 mg/g creat [facility] Urine (Urine, Clean Catch) 11/06/2024 10:22 AM EDT 11/06/2024 us Robby Justice MD LAB URINE ORDERABLES Final Resu lt [facility] [address] [place] [address] * Vitamin D 25 hydroxy (11/06/2024 10:22 AM EDT) Only the most recent of2 resultswithin the time period is included. Vitamin D, 25-OH, Total 39.8 30.0 - 100.0 ng/mL [facility] Comment: Vitamin D deficiency has been defined by the [place] of Medicine and an Endocrine Society practice guideline as a level of serum 25-OH vitamin D less than 20 ng/mL (1,2). The Endocrine Society went on to further define vitamin D insufficiency as a level between 21 and 29 ng/mL (2). 1. IOM ([place] of Medicine). 2010. Dietary reference ?? intakes for calcium and D. [place]: The ?? National Academies Press. 2. Sulema MF, Frankie NC, Vincenzo LACY, et al. ?? Evaluation, treatment, and prevention of vitamin D ?? deficiency: an Endocrine Society clinical practice ?? guideline. JCEM. 2010; 96(7):1911-30. Blood (Blood, Venous) 11/06/2024 10:22 AM EDT 11/06/2024 us Robby Justice MD LAB BLOOD ORDERABLES Final Resu lt [facility] [address] [place] [address] * (ABNORMAL) CBC and Differential (11/06/2024 10:22 AM EDT) WBC 6.7 3.4 - 10.8 x10E3/uL [facility] RBC 3.42(L) 4.14 - 5.80 x10E6/uL [facility] Hemoglobin 10.3(L) 13.0 - 17.7 g/dL [facility] Hematocrit 31.3(L) 37.5 - 51.0 % [facility] MCV 92 79 - 97 fL [facility] MCH 30.1 26.6 - 33.0 pg [facility] MCHC 32.9 31.5 - 35.7 g/dL [facility] RDW 12.9 11.6 - 15.4 % [facility] Platelets 233 150 - 450 x10E3/uL [facility] Neutrophils Relative 70 Not Estab. % [facility] Lymphocytes Relative 18 Not Estab. % [facility] Monocytes 11 Not Estab. % [facility] Eosinophils Relative 0 Not Estab. % [facility] Basophils Relative 1 Not Estab. % [facility] Neutrophils Absolute 4.6 1.4 - 7.0 x10E3/uL [facility] Lymphocytes Absolute 1.2 0.7 - 3.1 x10E3/uL [facility] Monocytes Absolute 0.7 0.1 - 0.9 x10E3/uL [facility] Eosinophils Absolute 0.0 0.0 - 0.4 x10E3/uL [facility] Basophils Absolute 0.1 0.0 - 0.2 x10E3/uL [facility] Immature Granulocytes 0 Not Estab. % [facility] Immature Grans (Absolute) 0.0 0.0 - 0.1 x10E3/uL [facility] Blood (Blood, Venous) 11/06/2024 10:22 AM EDT 11/06/2024 us Robby Justice MD LAB BLOOD ORDERABLES Final Resu lt [facility] [address] [place] [address] * PTH, intact (11/06/2024 10:22 AM EDT) Only the most recent of2 resultswithin the time period is included. PTH 50 15 - 65 pg/mL [facility] Blood (Blood, Venous) 11/06/2024 10:22 AM EDT 11/06/2024 Robby Justice MD LAB BLOOD ORDERABLES Final Resu lt [facility] [address] [place] [address] * Ferritin (11/06/2024 10:22 AM EDT) Only the most recent of2 resultswithin the time period is included. Ferritin 373 30 - 400 ng/mL [facility] Blood (Blood, Venous) 11/06/2024 10:22 AM EDT 11/06/2024 Robby Justice MD LAB BLOOD ORDERABLES Final Resu lt [facility] [address] [place] [address] * (ABNORMAL) Renal function panel (11/06/2024 10:22 AM EDT) Only the most recent of3 resultswithin the time period is included. Pathologist [facility] Glucose 229(H) 70 - 99 mg/dL [facility] BUN 38(H) 8 - 27 mg/dL [facility] Creatinine 2.47(H) 0.76 - 1.27 mg/dL [facility] eGFR CKD-EPI CR 2020 28(L) >59 mL/min/1.7 3 [facility] BUN/Creatinine Ratio 15 10 - 24 [facility] Sodium 139 134 - 144 mmol/L [facility] Potassium 4.4 3.5 - 5.2 mmol/L [facility] Chloride 102 96 - 106 mmol/L [facility] Bicarbonate (CO2) 20 20 - 29 mmol/L [facility] Calcium 9.1 8.6 - 10.2 mg/dL [facility] Albumin 4.3 3.9 - 4.9 g/dL [facility] Phosphorus 3.9 2.8 - 4.1 mg/dL [facility] Blood (Blood, Venous) 11/06/2024 10:22 AM EDT 11/06/2024 Robby Justice MD LAB BLOOD ORDERABLES Final Resu lt [facility] [address] [place] [address] from Last 3 Months Insurance [facility] Care Teams [employer] Relationship Specialty Start Date End Date Sarah Long MD [address] [place] [id number] PCP - General Family Medicine 08/24/24
== END 2024-11-22 14:09 | disposition home or self-care (01) ==
PROVIDERS: PCP Physician Assistant; Visit Provider Physician Assistant
DX: I12.9 Hypertensive chronic kidney disease with stage 1 through stage 4 chronic kidney disease, or unspecified chronic kidney disease (principal); E11.22 Type 2 diabetes mellitus with diabetic chronic kidney disease; Z79.4 Long term (current) use of insulin; N18.4 Chronic kidney disease, stage 4 (severe); E11.29 Type 2 diabetes mellitus with other diabetic kidney complication; E78.5 Hyperlipidemia, unspecified; R80.9 Proteinuria, unspecified; Z87.891 Personal history of nicotine dependence

== ENCOUNTER → 2024-11-22 13:02 | Outpatient (BNVA) | payer BC, SELFPAY | PROVIDERS: PCP Physician Assistant; Visit Provider Physician Assistant | DX: I12.9 Hypertensive chronic kidney disease with stage 1 through stage 4 chronic kidney disease, or unspecified chronic kidney disease (principal); E11.22 Type 2 diabetes mellitus with diabetic chronic kidney disease; N18.4 Chronic kidney disease, stage 4 (severe); E78.5 Hyperlipidemia, unspecified; E11.29 Type 2 diabetes mellitus with other diabetic kidney complication; R80.9 Proteinuria, unspecified; Z87.891 Personal history of nicotine dependence; Z79.4 Long term (current) use of insulin | CPT/HCPCS: 96127 ==

== ENCOUNTER → 2024-12-20 14:59 | Outpatient (BNVA) | payer BC, SELFPAY | PROVIDERS: PCP Physician Assistant; Visit Provider Physician Assistant | DX: Z13.89 Encounter for screening for other disorder (principal) ==

== ENCOUNTER → 2024-12-20 14:59 | Outpatient (AMB) | payer BC, SELFPAY ==
--- NOTE | 2024-12-20 15:10 | A.OFFPC_ITS ---
Vital Signs 12/20/24 15:13 12/20/24 15:21 Height 5 ft 7.72 in Weight 191 lb BMI 29.3 BP 158/56 H 144/60 H Blood Pressure Location Lt brachial Lt brachial Position Sitting Sitting Respiration 16 Pulse 54 Pulse Source Pulse Oximeter Pulse Oximetry (%) 95 Oxygen Delivery Method Room Air Intake Visit Reasons: bp Intake Note: Follow up blood pressure. Bottom Filler Required: No Allergies No Known Allergies Allergy (Verified 12/20/24 15:12) Medication List - Last Reconciled 12/20/24 by Kate Glasgow PA-C albuterol sulfate 90 mcg/actuation 2 puffs inhalation Q6H PRN aspirin (Adult Low Dose Aspirin) 81 mg PO DAILY atorvastatin 40 mg PO DAILY ergocalciferol (vitamin D2) 1,250 mcg PO QWEEK fluticasone propionate 50 mcg/actuation 2 sprays intranasal DAILY hydralazine 50 mg PO BID insulin glargine (Lantus U-100 Insulin) 32 units subcut QAM insulin lispro 1 sliding scale dose subcut USEASDIRECTD metoprolol succinate ER 100 mg PO .Every AM metoprolol succinate ER 25 mg PO .Every AM sodium bicarbonate 650 mg PO .Every AM sodium polystyrene sulfonate 15 grams PO .every 48 hours Tobacco use date assessed: 12/20/24 Fall risk assessment: No Falls in past year Last assessed Fall Risk: 12/20/24 Dental Screening Dental Screen Date: 11/22/24 HPI bp HPI Details Patient is a 69-year-old male who presents today to He is transferring from [place]. He has a significant past medical history of pancreatitis, chronic kidney disease stage IV with recent MAGDA,, type 2 diabetes, hypertension, hyperlipidemia Endo: Last A1c was 7.9. He is currently on Lantus 32 units in the morning and lispro 3 times a day sliding scale -following with [facility] endocrinology a nd is scheduled for a follow up CV: Blood pressure today in the office is 144/60. He is on metoprolol 150mg daily, amlodipine 10 mg mg day. At his nephrology visit last week Dr. Justice who ordered him to start hydralazine 50 mg twice a day but he has not started this yet. Cholesterol is controlled with atorvastatin 40 mg. He is on a baby aspirin. Nephro: Following with Dr. Justice . He had a GI bug in July and then was hospitalized for an MAGDA. Last GFR was 28 following the MAGDA Colonoscopy: Declines due to anal leakage following initial colonoscopy PSA: Overdue LDCT: follows at [facility], family history of lung cancer in father AAA screen: States never had [facility] Surgical History (Updated 12/20/24 @ 15:24 by Paola Linder CMA) No pertinent past surgical history Social History Housing: House Patient Tobacco Use Status: Former Tobacco user Cigarette Packs Per Day: 1 Years Smoked: 50 e-Cigarette/Vaping Use: Never Used Second Hand Smoke Exposure: No service: No Current occupational status: retired Cognitive needs: No Hearing needs: Yes (bilateral hearing loss ) Vision needs: Yes (glasses) Questionnaire Thrive Questionnaire Date Thrive assessed: 11/15/24 I am a: Patient What is your living situation today?: I choose not to answer this question Within the past 12 months, did the food you bought not last and you didn't have the money to get more?: I choose not to answer this question Within the past 12 months, did you worry whether your food would run out before you got money to buy more?: I choose not to answer this question Do you have trouble paying for medicines?: I choose not to answer this question Do you have trouble getting transportation to medical appointments?: I choose not to answer this question Do you have trouble paying your heating and electricity bill?: I choose not to answer this question Do you have trouble taking care of your child, family member or friend?: I choose not to answer this question Do you have trouble with day-to-day activities such as bathing, preparing meals, shopping, managing finances, etc.?: I choose not to answer this question Are you currently unemployed and looking for a job?: I choose not to answer this question Are you interested in more education?: I choose not to answer this question Please select the resources that you would like help with: None Currently or been in a relationship where the following occur: I choose not to answer THRIVE Score: 0 CHERELLE-7 AMB Questionnaire CHERELLE-7 Date CHERELLE - 7 assessed: 11/22/24 Source: Developed by Drs. Doron Medellin, Keyla Rich, Jaziel Timmons and colleagues, with an educational sanjeev from [employer]. Physical exam (Primary Care) Vital Signs: Last Vital Signs Pulse 54 06/05/25 15:13 Resp 16 12/20/24 15:13 BP 144/60 H 12/20/24 15:21 Pulse Ox 95 12/20/24 15:13 Oxygen Delivery Method Room Air 12/20/24 15:13 BMI result Body Mass Index 29.3 Tobacco/Smoking Status: Tobacco use Status Tobacco use date assessed 12/20/24 12/20/24 15:20 Patient Tobacco Use Status Former Tobacco user 12/20/24 15:25 e-Cigarette/Vaping Use Never Used 12/20/24 15:25 Thrive Assessment: Date of Thrive Assessment Date Thrive assessed 11/15/24 12/20/24 15:11 Currently or been in a relationship where the following occur: I choose not to answer Coding Level of Care Code Est Pt Level 4 (37746) Complex EM visit Add On G2211 Diagnoses Chronic kidney disease, stage 4 (severe) N18.4 HTN (hypertension) I10 HLD (hyperlipidemia) E78.5 Assessment & Plan Assessment & Plan (1) Chronic kidney disease, stage 4 (severe): Code(s): N18.4 - Chronic kidney disease, stage 4 (severe) Category: Medical Plan: Stable. We will monitor (2) HTN (hypertension): Code(s): I10 - Essential (primary) hypertension Category: Medical Plan: Advised to start hydralazine (3) HLD (hyperlipidemia): Code(s): E78.5 - Hyperlipidemia, unspecified Category: Medical Plan: Continue with the atorvastatin. We will monitor.
[2024-12-20 15:13] VITALS: BP 158/56; PULSE 54; RESP 16; O2SAT 95; BMI 29.3
[2024-12-20 15:21] VITALS: BP 144/60
--- OUTSIDE RECORDS SUMMARY | 2024-12-20 17:41 | XMS_ITS | Clinical Summary ---
Author Organization [facility] Address [address] [place] [address] Phone Care Team Providers Care Digital Associate Media Director Name Role Phone Sarah Long MD Primary Care Provider [phone] Allergies No known active allergies Medications atorvastatin (LIPITOR) 40 MG tablet Take 40 mg by mouth 1 (one) time each day 4 Active amLODIPine (NORVASC) 5 MG tablet Take 10 mg by mouth in the morning. 5 Active metoprolol succinate XL (TOPROL-XL) 100 MG 24 hr tablet Take 100 mg by mouth 1 (one) time each day DO NOT CRUSH OR CHEW Active metoprolol succinate XL (TOPROL XL) 25 MG 24 hr tablet 50 mg 1 (one) time each day Active insulin glargine (LANTUS) 100 UNIT/ML injection Inject 10 Units under the skin every night Active Insulin Admin Supplies ([place] Pen Cap/Lispro) misc Active sodium bicarbonate 650 MG tablet Take 1 tablet (650 mg total) by mouth in the morning and 1 tablet (650 mg total) in the evening. 180 tablet 3 5 026 Active ergocalciferol (Drisdol) 1.25 MG (00367 UT) capsule Take 1 capsule (50,000 Units total) by mouth 1 (one) time per week 12 capsule 1 5 026 Active insulin lispro protamine-insul in lispro (HumaLOG 50-50) (50-50) 100 UNIT/ML inj pen Inject under the skin 2 (two) times a day before meals Active aspirin 81 MG chewable tablet Chew 81 mg 1 (one) time each day Active sodium polystyrene sulfonate (KAYEXALATE) powder Take 15 g by mouth 2 (two) times a week 5 Active hydrALAZINE 50 MG tablet Take 1 tablet (50 mg total) by mouth in the morning and 1 tablet (50 mg total) in the evening. 180 tablet 3 5 026 Active sodium polystyrene sulfonate (KAYEXALATE) powder Take 15 g by mouth every other day 675 g 3 5 025 Discontinued Active Problems Problem Noted Date Diagnosed Date Acute nontraumatic kidney injury 08/23/2024 Stage 3a chronic kidney disease 08/23/2024 Type 2 diabetes mellitus wit h diabetic chronic kidney disease 08/23/2024 Hyperkalemia 08/23/2024 Vitamin D deficiency 08/23/2024 Metabolic acidosis 08/23/2024 Encounters Date Type Department Care Team Description 12/13/2024 2:00 PM EDT Office Visit [facility] [address] [address] Robby Justice MD Other acute kidney failure (HCC) (Primary Dx); Stage 3a chronic kidney disease (HCC); Type 2 diabetes mellitus with diabetic chronic kidney disease (HCC); Hyperkalemia; Other acidosis 11/04/2024 Orders Only [facility] [address] [address] Robby Justice MD Other acute kidney failure (HCC); Stage 3a chronic kidney disease (HCC); Type 2 diabetes mellitus with diabetic chronic kidney disease (HCC); Hyperkalemia; Vitamin D deficiency, not otherwise specified; Other acidosis; Anemia in chronic kidney disease from Last 3 Months Social History Tobacco Use Types Packs/Day Years Used Date Smoking Tobacco: Former Cigarettes Smokeless Tobacco: Never Tobacco Cessation:Counseling Given: Not Answered Alcohol Use Standard Drinks/Week Comments Not Currently 0 (1 standard drink = 0.6 oz pur e alcohol) Sex and Gender Information Value Date Recorded Sex Assigned at Not on file Legal Sex Male 2:08 PM EDT Gender Identity Not on file Sexual Orientation Not on file Last Filed Vital Signs Vital Sign Reading Time Taken Comments Blood Pressure 150/70 12/13/2024 2:03 PM EDT Pulse 49 12/13/2024 2:03 PM EDT Temperature - - Respiratory Rate - - Oxygen Saturation 98% 08/23/2024 1:54 PM EST Inhaled Oxygen Concentration - - Weight 95.7 kg (211 lb) 12/13/2024 2:03 PM EDT Height - - Body Mass Index - - Plan of Treatment Upcoming Encounters Date Type Department Care Team (Late st Contact Info) Description 04/04/2025 3:30 PM EDT Office Visit [facility] [address] [place] [address] Robby Justice MD [address] [address] Health Maintenance Due Date Last [...] Other acidosis Anemia in chronic kidney disease from Last 3 Months Results * Iron Panel (Fe, TIBC, TSAT) (11/06/2024 10:22 AM EDT) TIBC 290 250 - 450 ug/dL [facility] UIBC 222 111 - 343 ug/dL [facility] Iron 68 38 - 169 ug/dL [facility] Iron Saturation (TSat) 23 15 - 55 % [facility] Blood specimen (specimen) Venous blood / Unknown 11/06/2024 10:22 AM EDT 11/06/2024 us Robby Justice MD LAB BLOOD ORDERABLES Final Resu lt Performing Organization Address City/[facility] Co de Phone Number [facility] [address] [place] [address] * (ABNORMAL) Urine Protein / creatinine ratio (11/06/2024 10:22 AM EDT) Creatinine, Ur 86.6 Not Estab. mg/dL [facility] Protein, Ur 86.1 Not Estab. mg/[facility] Protein/Creati nine Ratio 994(H) 0 - 200 mg/g creat [facility] Urine specimen (specimen) Urine specimen obtained by clean catch procedure / Unknown 11/06/2024 10:22 AM EDT 11/06/2024 us Robby Justice MD LAB URINE ORDERABLES Final Resu lt Performing Organization Address [facility] Co de Phone Number [facility] [place] [address] [place] [address] * Vitamin D 25 hydroxy (11/06/2024 10:22 AM EDT) Vitamin D, 25-OH, Total 39.8 30.0 - 100.0 ng/mL [facility] Comment: Vitamin D deficiency has been defined by the [place] of Medicine and an Endocrine Society practice guideline as a level of serum 25-OH vitamin D less than 20 ng/mL (1,2). The Endocrine Society went on to further define vitamin D insufficiency as a level between 21 and 29 ng/mL (2). 1. IOM ([place] of Medicine). 2010. Dietary reference ?? intakes for calcium and D. [place]: The ?? National Academies Press. 2. Sulema MF, Frankie [place], Vincenzo LACY, et al. ?? Evaluation, treatment, and prevention of vitamin D ?? deficiency: an Endocrine Society clinical practice ?? guideline. JCEM. 2010; 96(7):1911-30. Blood specimen (specimen) Venous blood / Unknown 11/06/2024 10:22 AM EDT 11/06/2024 us Robby Justice MD LAB BLOOD ORDERABLES Final Resu lt [facility] [address] [place] [address] * (ABNORMAL) CBC and Differential (11/06/2024 10:22 AM EDT) WBC 6.7 3.4 - 10.8 x10E3/uL [facility] RBC 3.42(L) 4.14 - 5.80 x10E6/uL [facility] Hemoglobin 10.3(L) 13.0 - 17.7 g/dL [facility] Hematocrit 31.3(L) 37.5 - 51.0 % [facility] MCV 92 79 - 97 fL [facility] MCH 30.1 26.6 - 33.0 pg [facility] MCHC 32.9 31.5 - 35.7 g/dL [facility] RDW 12.9 11.6 - 15.4 % [facility] Platelets 233 150 - 450 x10E3/uL [facility] Neutrophils Relative 70 Not Estab. % [facility] Lymphocytes Relative 18 Not Estab. % [facility] Monocytes 11 Not Estab. % [facility] Eosinophils Relative 0 Not Estab. % [facility] Basophils Relative 1 Not Estab. % [facility] Neutrophils Absolute 4.6 1.4 - 7.0 x10E3/uL [facility] Lymphocytes Absolute 1.2 0.7 - 3.1 x10E3/uL [facility] Monocytes Absolute 0.7 0.1 - 0.9 x10E3/uL [facility] Eosinophils Absolute 0.0 0.0 - 0.4 x10E3/uL [facility] Basophils Absolute 0.1 0.0 - 0.2 x10E3/uL [facility] Immature Granulocytes 0 Not Estab. % [facility] Immature Grans (Absolute) 0.0 0.0 - 0.1 x10E3/uL [facility] Blood specimen (specimen) Venous blood / Unknown 11/06/2024 10:22 AM EDT 11/06/2024 us Robby Justice MD LAB BLOOD ORDERABLES Final Resu lt [facility] [address] [place] [address] * PTH, intact (11/06/2024 10:22 AM EDT) PTH 50 15 - 65 pg/mL [facility] Blood specimen (specimen) Venous blood / Unknown 11/06/2024 10:22 AM EDT 11/06/2024 us Robby Justice MD LAB BLOOD ORDERABLES Final Resu lt [facility] [address] [place] [address] * Ferritin (11/06/2024 10:22 AM EDT) Pathologist [facility] Ferritin 373 30 - 400 ng/mL [facility] Blood specimen (specimen) Venous blood / Unknown 11/06/2024 10:22 AM EDT 11/06/2024 us Robby Justice MD LAB BLOOD ORDERABLES Final [facility] [address] [place] [address] * (ABNORMAL) Renal function panel (11/06/2024 10:22 AM EDT) Glucose 229(H) 70 - 99 mg/dL [facility] BUN 38(H) 8 - 27 mg/dL [facility] Creatinine 2.47(H) 0.76 - 1.27 mg/dL [facility] eGFR CKD-EPI CR 2020 28(L) >59 mL/min/1.7 3 [facility] BUN/Creatinine Ratio 15 10 - 24 [facility] Sodium 139 134 - 144 mmol/L [facility] Potassium 4.4 3.5 - 5.2 mmol/L [facility] Chloride 102 96 - 106 mmol/L [facility] Bicarbonate (CO2) 20 20 - 29 mmol/L [facility] Calcium 9.1 8.6 - 10.2 mg/dL [facility] Albumin 4.3 3.9 - 4.9 g/dL [facility] Phosphorus 3.9 2.8 - 4.1 mg/dL [facility] Blood specimen (specimen) Venous blood / Unknown 11/06/2024 10:22 AM EDT 11/06/2024 Robby Justice MD LAB BLOOD ORDERABLES Final Resu lt [facility] [address] [place] [address] from Last 3 Months Insurance [facility] Care Teams Digital Associate Media Director Relationship Specialty Start Date End Date Sarah Long MD [address] [place] [id number] PCP - General Family Medicine 08/24/24
== END ==
LOC: HO.HMCFM 14:59
PROVIDERS: PCP Physician Assistant; Visit Provider Physician Assistant
DX: I12.9 Hypertensive chronic kidney disease with stage 1 through stage 4 chronic kidney disease, or unspecified chronic kidney disease (principal); N18.4 Chronic kidney disease, stage 4 (severe); E78.5 Hyperlipidemia, unspecified

== ENCOUNTER 2025-03-06 14:07 | Outpatient (REF) | payer BC, SELFPAY ==
--- OUTSIDE RECORDS SUMMARY | 2025-03-06 16:19 | XMS_ITS ---
Author Name [facility] Organization Unknown Care Team Organization Name Specialty Phone Email Start Date End Da pat [facility] Termed, PROVIDER Primary Care 05/25/202202/15
[2025-03-06 17:24] LABS: MANUAL DIFF FLAG NO
[2025-03-06 17:44] LABS: Hematocrit 33.1 % (42.0-52.0); Hemoglobin 11.3 g/dl (14.0-18.0); Imm Gran Abs Auto 0.01 X10*3/uL (0.00-0.03); Imm Gran Pct Auto 0.1 % (0.0-0.4); Lymphocytes Absolute Auto 1.2 X10*3/uL (1.2-4.9); Mean Corpuscular HGB Conc 34.1 g/dl (31.0-36.0); Mean Corpuscular Hemoglobin 30.5 pg (27.0-33.0); Mean Corpuscular Volume 89.2 fL (80.0-98.0); NRBC Abs Auto 0.000 X10*3/uL (0.0-0.012); NRBC Pct Auto 0.0 /100WBC (0.0-0.2); Platelet Count 247 X10*3/uL (160-400); Red Blood Count 3.71 X10*6/uL (4.60-5.80); White Blood Count 8.2 X10*3/uL (4.8-10.8)
[2025-03-06 18:21] LABS: Alanine Aminotransferase 37 U/L (0-40); Albumin Level 4.7 g/dL (3.5-5.0); Alkaline Phosphatase 75 U/L (39-117); Anion Gap 13 (12-20); Aspartate Amino Transferase 40 U/L (5-37); Blood Urea Nitrogen 46 mg/dL (9-16); Calcium 9.5 mg/dL (8.4-10.2); Carbon Dioxide 25 mmol/L (22-29); Chloride 110 mmol/L (96-108); Cholesterol 155 mg/dL (<200); Estimated Glomerular Filt Rate 23; HDL Cholesterol 27 mg/dL (>40); Potassium 4.5 mmol/L (3.3-5.1); Sodium 143 mmol/L (135-145); Total Protein 7.7 g/dL (6.5-8.0); Triglycerides 291 mg/dL (<150)
== END 2025-03-06 14:08 | disposition home or self-care (01) ==
LOC: HO.WFDLDS 14:07
PROVIDERS: PCP Physician Assistant; Visit Provider Physician Assistant
DX: Z12.5 Encounter for screening for malignant neoplasm of prostate (principal); I12.9 Hypertensive chronic kidney disease with stage 1 through stage 4 chronic kidney disease, or unspecified chronic kidney disease; E11.22 Type 2 diabetes mellitus with diabetic chronic kidney disease; N18.4 Chronic kidney disease, stage 4 (severe); E78.5 Hyperlipidemia, unspecified; E11.29 Type 2 diabetes mellitus with other diabetic kidney complication; R80.9 Proteinuria, unspecified; Z79.4 Long term (current) use of insulin; Z87.891 Personal history of nicotine dependence
CPT/HCPCS: 36415; 80053; 80061; 84153; 84443; 84681; 85025; 86341

== ENCOUNTER 2025-03-06 14:07 | Outpatient (AMB) | payer BC, SELFPAY ==
--- NOTE | 2025-03-06 14:00 | MHC.PC.OV ---
Vital Signs 03/06/25 14:19 03/06/25 14:29 Height 5 ft 7.72 in Weight 218 lb 2 oz BMI 33.4 BP 152/54 H 156/52 H Blood Pressure Location Rt brachial Rt brachial Position Sitting Sitting Respiration 14 Pulse 54 Pulse Source Pulse Oximeter Temp 98.6 F Temp Source Oral Pulse Oximetry (%) 96 Oxygen Delivery Method Room Air Intake Visit Reasons: bp check Intake Note: Blood pressure follow up [facility] [employer] [facility] Required: No Allergies No Known Allergies Allergy (Verified 03/06/25 14:18) Medication List - Last Reconciled 03/06/25 by Kate Glasgow PA-C amlodipine 10 mg PO DAILY aspirin (Adult Low Dose Aspirin) 81 mg PO DAILY atorvastatin 40 mg PO DAILY ergocalciferol (vitamin D2) 1,250 mcg PO QWEEK fluticasone propionate 50 mcg/actuation 2 sprays intranasal DAILY hydralazine 50 mg PO BID insulin glargine (Lantus U-100 Insulin) 32 units subcut QAM insulin lispro 1 sliding scale dose subcut USEASDIRECTD metoprolol succinate ER 100 mg PO .Every AM metoprolol succinate ER 50 mg (2 x 25 mg) PO .Every AM sodium bicarbonate 650 mg PO .Every AM sodium bicarbonate 650 mg PO DAILY PRN sodium polystyrene sulfonate 15 grams PO .every 48 hours Tobacco use date assessed: 03/06/25 Fall risk assessment: No Falls in past year Last assessed Fall Risk: 03/06/25 Dental Screening Dental Screen Date: 11/22/24 HPI bp check HPI Details Patient is a 69-year-old male who presents today for a follow up. He has a significant past medical history of pancreatitis, chronic kidney disease stage IV with recent MAGDA,, type 2 diabetes, hypertension, hyperlipidemia Endo: Last A1c was 7.9. He is currently on Lantus 32 units in the morning and lispro 3 times a day sliding scale cgm- GMI 7.9%, Very hypergylcemic 7%, hyperglycemic 54%, in range 39% -following with [facility] endocrinology and is scheduled for a follow up in a couple weeks. CV: Blood pressure today in the office is 152/54. He is on metoprolol 150mg daily, amlodipine 10 mg day, and hydralazine 50 mg twice a day. He has a follow up next week. Cholesterol is controlled with atorvastatin 40 mg. He is on a baby aspirin. Nephro: Following with Dr. Justice . He had a GI bug in July and then was hospitalized for an MAGDA. Last GFR was 28 following the MAGDA. Has a follow up next week for a 2nd opinion with Nephrology. Patient's states that she feels that his GFR and labs to be more routinely monitored by Nephrology and she wants to make sure that the treatment plan is agreed upon by a 2nd supervisor pumping station. [facility] Surgical History (Updated 12/20/24 @ 15:24 by Paola Linder CMA) No pertinent past surgical history Social History (Updated 12/20/24 @ 15:25 by Paola Linder CMA) Housing: House Patient Tobacco Use Status: Former Tobacco user Cigarette Packs Per Day: 1 Years Smoked: 50 e-Cigarette/Vaping Use: Never Used Second Hand Smoke Exposure: No service: No Current occupational status: retired Cognitive needs: No Hearing needs: Yes (bilateral hearing loss ) Vision needs: Yes (glasses) Questionnaire Thrive Questionnaire Date Thrive assessed: 11/15/24 I am a: Patient What is your living situation today?: I choose not to answer this question Within the past 12 months, did the food you bought not last and you didn't have the money to get more?: I choose not to answer this question Within the past 12 months, did you worry whether your food would run out before you got money to buy more?: I choose not to answer this question Do you have trouble paying for medicines?: I choose not to answer this question Do you have trouble getting transportation to medical appointments?: I choose not to answer this question Do you have trouble paying your heating and electricity bill?: I choose not to answer this question Do you have trouble taking care of your child, family member or friend?: I choose not to answer this question Do you have trouble with day-to-day activities such as bathing, preparing meals, shopping, managing finances, etc.?: I choose not to answer this question Are you currently unemployed and looking for a job?: I choose not to answer this question Are you interested in more education?: I choose not to answer this question Please select the resources that you would like help with: None Currently or been in a relationship where the following occur: I choose not to answer THRIVE Score: 0 CHERELLE-7 AMB Questionnaire CHERELLE-7 Date CHERELLE - 7 assessed: 11/22/24 Source: Developed by DrsManda Medellin, Keyla Rich, Jaziel Timmons and colleagues, with an educational sanjeev from [employer] Physical exam (Primary Care) Vital Signs: Last Vital Signs Temp 98.6 F 03/06/25 14:19 Pulse 54 03/06/25 14:19 Resp 14 03/06/25 14:19 BP 156/52 H 03/06/25 14:29 Pulse Ox 96 03/06/25 14:19 Oxygen Delivery Method Room Air 03/06/25 14:19 BMI result Body Mass Index 33.4 Tobacco/Smoking Status: Tobacco use Status Tobacco use date assessed 03/06/25 03/06/25 14:24 Patient Tobacco Use Status Former Tobacco user 03/06/25 14:01 e-Cigarette/Vaping Use Never Used 03/06/25 14:01 Thrive Assessment: Date of Thrive Assessment Date Thrive assessed 11/15/24 03/06/25 14:01 Currently or been in a relationship where the following occur: I choose not to answer Const Orientation/consciousness: patient oriented x3 HENMT Ears: hearing grossly normal bilaterally Neck Thyroid: Thyroid normal Lymphatic: no lymphadenopathy noted Resp Auscultation: clear to auscultation bilaterally Cardio Rate: regular rate Rhythm: regular rhythm Heart sounds: S1 normal heart sound present and S2 normal heart sound present GI Inspection: Yes normal to inspection Palpation (GI): Soft to palpation and Other GI palpation findings present (nontender, no cva tenderness) Auscultation: normoactive bowel sounds Rectal Exam - Male: Yes deferred Skin General skin exam: no rashes or lesions noted Neuro General: patient oriented x3, gait normal and no focal motor deficits Coding Level of Care Code Est Pt Level 4 (16031) Complex EM visit Add On G2211 Diagnoses Type 2 diabetes mellitus with chronic kidney disease, with long-term current use of insulin E11.22; Z79.4 Microalbuminuria due to type 2 diabetes mellitus E11.29; R80.9 HTN (hypertension) I10 HLD (hyperlipidemia) E78.5 Chronic kidney disease, stage 4 (severe) N18.4 Assessment & Plan Assessment & Plan (1) Type 2 diabetes mellitus with chronic kidney disease, with long-term current use of insulin: Code(s): E11.22 - Type 2 diabetes mellitus with diabetic chronic kidney disease; Z79.4 - longterm (current) use of insulin Category: Medical Plan: Advised to increase sliding scale by 2 units. Continue with the Lantus as otherwise ordered. We did review that it does appear that his Lantus is wearing off partway through the evening. Discussed that he may need to try a different insulin. 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 Diabetic labs ordered. (2) Microalbuminuria due to type 2 diabetes mellitus: Code(s): E11.29 - Type 2 diabetes mellitus with other diabetic kidney complication; R80.9 - Proteinuria, unspecified Category: Medical Plan: As above (3) HTN (hypertension): Code(s): I10 - Essential (primary) hypertension Category: Medical Plan: Blood pressures at home have been about 130/60. They have a list of them today. Continue current regimen. Has upcoming appointment with Nephrology. (4) HLD (hyperlipidemia): Code(s): E78.5 - Hyperlipidemia, unspecified Category: Medical Plan: WNL. Continue current regimen (5) Chronic kidney disease, stage 4 (severe): Code(s): N18.4 - Chronic kidney disease, stage 4 (severe) Category: Medical Plan: Has been stable. We will monitor. 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
[2025-03-06 14:19] VITALS: BP 152/54; PULSE 54; RESP 14; TEMP 37; O2SAT 96; BMI 33.4
[2025-03-06 14:29] VITALS: BP 156/52
--- OUTSIDE RECORDS SUMMARY | 2025-03-06 15:03 | XMS_ITS | Encounter Summary ---
Author Organization [facility] Address [address] [address] Phone Care Team Providers Care Trim Technician Name Role Phone Sarah Long MD Primary Care Provider Reason for Visit * Reason Onset Date Comments Med Refill 02/02/2025 Encounter Details Date Type Department Care Team (Late st Contact Info) Description 02/02/2025 Refill [facility] [address] [place] [address] Robby Justice MD [address] [phone] Social History Tobacco Use Types Packs/Day Years Used Date Smoking Tobacco: Former Cigarettes Smokeless Tobacco: Never Alcohol Use Standard Drinks/Week Comments Not Currently 0 (1 standard drink = 0.6 oz pur e alcohol) Sex and Gender Information Value Date Recorded Sex Assigned at Not on file Legal Sex Male 2:08 PM EDT Gender Identity Not on file Sexual Orientation Not on file documented as of this encounter Miscellaneous Notes * Telephone Encounter - Jojo Hernandes - 03/04/2025 11:30 AM EDT Already filled. documented in this encounter Plan of Treatment Upcoming Encounters Date Type Department Care Team (Late st Contact Info) Description 04/04/2025 3:30 PM EDT Office Visit [facility] [address] [place] [address] Robby Justice MD [address] [address] documented as of this encounter Visit Diagnoses Not on filedocumented in this encounter Care Teams Trim Technician Relationship Specialty Start Date End Date Sarah Long MD [address] [place] [phone] PCP - General Family Medicine 08/24/24 documented as of this encounter
--- OUTSIDE RECORDS SUMMARY | 2025-03-06 15:03 | XMS_ITS | Clinical Summary ---
Author Organization [facility] [address] [facility] lding Address [address] [place] [address] Phone Care Team Providers Care Corrugator Supervisor Name Role Phone Unavailable Primary Care Provider Unavailabl e Allergies No known active allergies Medications alcohol swabs pads, medicated Apply 1 Each topically 2 times daily as needed (insulin use). 0 Active Autolet (OneTouch Delica Plus Lanc Dev) lancing device Use to check blood sugar twice daily. 7 Active blood glucose control, normal (OneTouch Ultra Control) solution Use to calibrate meter. 6 Active blood-glucose meter (ONETOUCH VERIO IQ METER MISC) Test bs tid 2 Active pen needle, diabetic 32 gauge x 5/32 needle USE WITH INSULIN DAILY 4 Active aspirin 81 mg EC tablet Take 81 mg by mouth daily. Active blood sugar diagnostic (OneTouch Verio test strips) test strip CHECK BLOOD SUGAR 2 TO 3 TIMES DAILY AND NEEDED FOR LOW BLOOD SUGARS 400 each 4 Active albuterol HFA (PROAIR HFA ; PROVENTIL HFA ; VENTOLIN HFA) 90 mcg/actuation inhaler Inhale 2 Puffs into the lungs every 4 hours as needed for Cough or Wheezing. 25.5 g 4 Active atorvastatin (LIPITOR) 40 mg tablet Take 1 tablet (40 mg total) by mouth 1 (one) time each day. 90 each 4 Active metoprolol succinate (TOPROL-XL) 25 mg 24 hr tablet Take 2 tablets (50 mg total) by mouth 1 (one) time each day. 360 tablet 4 Active sodium bicarbonate 650 mg tablet Take 1 tablet (650 mg total) by mouth 2 (two) times a day. Per 5 Active insulin glargine U-300 conc (TOUJEO MAX SoloStar) 300 unit/mL (3 mL) CONCENTRATED injection penIndications:Ty pe 2 diabetes mellitus without complication, with chiller hand current use of insulin pump ([facility] V24, [facility] V28) Take 10 units every morning 5 Active insulin lispro (HumaLOG KwikPen) 100 unit/mL injection pen Per SSI. BS 100-149- take 6units, 150-199- 7; 200-249-8, 250-299-9, 300-349-10,350 -399-11units 5 08/24/19 26 Active amLODIPine (NORVASC) 5 mg tablet TAKE 2 TABLETS BY MOUTH 1 TIME EACH DAY. 180 tablet 5 Active Active Problems Problem Noted Date Diagnosed Date Type 2 diabetes mellitus wit hout complication, with chiller hand current use of insulin pump ([facility] V24, [facility] V28) 10/13/2023 Renal cyst 12/23/2021 CKD (chronic kidney disease) stage 3, GFR 30-59 ml/min ([facility] V24, [facility] V28) 09/20/2018 Coronary artery calcification seen on CAT scan 1 08/22/2013 Hepatic steatosis 06/21/2014 Overview (06/08/2024): Noted on CT scan Diverticulosis 06/18/2014 Overview (06/08/2024): Noted on screening CT Pulmonary emphysema ([facility] V24, [facility] V28) 1 08/20/2012 Overview (06/08/2024): On chest CT IMO update Lung nodule 06/04/2013 Overview (06/08/2024): Stable on CT 2013 <4mm; micronodule Obstructive sleep apnea 08/01/2012 Overview (06/08/2024): CPAP 17-18 cm Poorly controlled type 2 santhosh betes mellitus ([facility] V24, [facility] V28) 08/06/2011 Overview (06/08/2024): Labs from [facility] are scanned Vitamin D deficiency 08/06/2011 Hypertension, essential 06/17/2011 Hyperlipidemia with target LDL less than 70 07/2010 Overview (06/08/2024): IMO update Alcohol abuse 05/14/2011 Mixed hyperlipidemia 05/14/2011 Immunizations Name Administration Dates Next Due Influenza [...] ? hepatomegaly OTHER SURGICAL HISTORY 2006 PROCEDURE: [place] ECHO TRANSTHORAC R-T 2D W/WO M-MODE REC [...] Date Smoking Tobacco: Every Day Cigarettes 2 55.6 Started: 07/18/1969 Smokeless Tobacco: Never Tobacco Cessation:Ready [...] care for your loved ones. For example, caretaker resort or elderly care for an older adult? [...] 54 08/24/2024 10:32 AM EST Temperature 35.9 C (96.7 F) 08/24/2024 10:32 AM EST Respiratory Rate 16 08/24/2024 10:32 AM EST [...] series) 1974 Zoster Vaccines (1 of 2) 1974 RSV Immunization Adult Patients (1 - Risk [...] 06/13/2023 Diabetes: Annual Foot Exam 10/12/2024 10/13/2023 Influenza Vaccine (#1) 2025 , 05/23/2018, 05/16/2017, Additional history exists Social Influencers of Health Screening 07/28/2025 07/28/2024 Falls Risk Assessment 07/30/2025 07/30/2024 Diabetes: Annual GFR (Glomerular Filtration Rate) 08/22/2025 08/22/2024, 08/18/2024, 10/05/2023 Hypertension/CHF/CAD Annual BMP Blood Test 08/22/2025 08/22/2024, 08/18/2024, 10/05/2023 Lung Cancer Screening (Low Dose CT) 09/18/2025 09/18/2024, 07/13/2023, 06/17/2022, Additional history exists Cholesterol Screening (Lipid Panel) 04/30/2027 04/30/2022 Hepatitis C Screening Completed 02/07/2017 Pneumococcal Vaccine: 50+ Years Completed 10/13/2023, 04/17/2010 Depression Screening Completed 07/28/2024 HIB Vaccines Aged Out No longer eligi [...] Lung-RADS 1: No nodules or definitely benign nodules. Continue annual screening with Low Dose Chest CT in 12 months. [facility] ([id number]) -------- FINAL REPORT -------- Dictated By: Dorys iWlliamson Dictated Date: 09/19/2024 16:11 ET Assigned Physician: Dorys Williamson Reviewed and Electronically Signed By: Dorys Williamson Signed Date: 09/19/2024 16:18 ET Workstation ID: [id number] Transcribed By: Self Edit Transcribed Date: 09/19/2024 16:11 ET Narrative 09/19/2024 4:18 PM EST History: 69 year-old 99 pack-year current smoker, asymptomatic, for lung cancer screening. Father had lung carcinoma. Mother had breast carcinoma. Comparison: 06/30/23 Technique: Helical volumetric imaging of the thorax was performed, using low- dose technique, without IV contrast. DLP: 169.48 mGy/cm CTDIvol: 4.83 mGy textPlus VCT Iterative reconstruction technique Findings: Lungs and [...] contrast. DLP: 169.48 mGy/cm CTDIvol: 4.83 mGy Eleme MedicalpeReaLync VCT Iterative reconstruction technique Findings: Lungs and [...] Dose Chest CT in 12 [place] ([id number]) -------- FINAL REPORT -------- Dictated By: Dorys Williamson Dictated Date: 09/19/2024 16:11 ET Assigned Physician: Dorys Williamson Reviewed and Electronically Signed By: Dorys Williamson Signed Date: 09/19/2024 16:18 ET Workstation ID: [id number] Transcribed By: Self Edit Transcribed Date: 09/19/2024 16:11 ET Deborah Diaz MD IMG CT PROCEDURES Final Result * Diabetes Foot Exam (10/13/2023) Diabetes: Annual Foot Exam Abstracted Historical Provider HEALTH MAINTENANCE Final Result * Annual BMP Blood Test (10/05/2023) Pathologist [facility] Annual BMP Blood Test Abstracted Result [facility] Provider HEALTH MAINTENANCE Final Result * Hemoglobin A1c (07/12/2023) [facility] Hemoglobin A1C 0.0 % Comment:No Interpretation Blood Venous blood specimen / Unknown Result [facility] Provider LAB BLOOD ORDERABLES Shania l Result * Diabetes Eye Exam (06/13/2023) [facility] Diabetes: Annual Retina Eye Exam Abstracted Result [facility] Provider HEALTH MAINTENANCE Final Result * Urine Albumin Creatinine Ratio (07/30/2022) [facility] Urine Albumin Creatinine Ratio Abstracted Result [facility] Provider HEALTH MAINTENANCE Final Result * Lipid panel (04/30/2022) [facility] LDL/HDL Ratio 0 Comment:No Interpretation Triglycerides 0 mg/dL Comment:No Interpretation Cholesterol 0 mg/dL Comment:No Interpretation HDL 0 mg/dL Comment:No Interpretation LDL Cholesterol 0 mg/dL Comment:No Interpretation Blood Venous blood specimen / Unknown Result [facility] Provider LAB BLOOD ORDERABLES Shania l Result * Colonoscopy (09/07/2018) [facility] Colonoscopy No Interpretation , Abstracted Anatomical Region Laterality Modality Other Result [facility] Provider HEALTH MAINTENANCE Final Result * Hepatitis C Screening (02/07/2017) 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
--- OUTSIDE RECORDS SUMMARY | 2025-03-06 15:03 | XMS_ITS | Clinical Summary ---
Author Organization [employer] Address [address] [place] [address] Care Team Providers Care Broker Name Role Phone Unavailable Primary Care Provider [...] AM EST Pulse - - Temperature 36.2 C (97.2 F) 06/14/2023 10:30 AM EST Respiratory Rate - - Oxygen Saturation - [...] season) 2024 03/13/2021, 02/20/2021 Influenza Vaccine (#1) 2025 8, 05/04/2016, 04/15/2015, Additional history exists Eye [...] age to complete this topic Insurance O [facility] Care Teams Broker Relationship Specialty Start Date End Date JESUS SERRANO DO [address] [address] Primary Care Provider 06/13/23
== END 2025-03-06 15:12 | disposition home or self-care (01) ==
LOC: HO.HMCFM 14:08
PROVIDERS: PCP Physician Assistant; Visit Provider Physician Assistant
DX: I12.9 Hypertensive chronic kidney disease with stage 1 through stage 4 chronic kidney disease, or unspecified chronic kidney disease (principal); E11.22 Type 2 diabetes mellitus with diabetic chronic kidney disease; Z79.4 Long term (current) use of insulin; E11.29 Type 2 diabetes mellitus with other diabetic kidney complication; N18.4 Chronic kidney disease, stage 4 (severe); R80.9 Proteinuria, unspecified; E78.5 Hyperlipidemia, unspecified

== ENCOUNTER 2025-03-13 15:03 | Outpatient (AMB) | payer BC, SELFPAY ==
--- NOTE | 2025-03-13 15:08 | HO.NEPHOV ---
Vital Signs 03/13/25 15:10 Height 5 ft 7.72 in Weight 217 lb BMI 33.3 BP 142/60 H Blood Pressure Location Lt brachial Position Sitting Pulse 52 Pulse Source Pulse Oximeter Pulse Oximetry (%) 95 Oxygen Delivery Method Room Air Intake Visit Reasons: INP: CKD/ 2nd opinion-LVM Helicopter Pilot Instructor Required: No Accompanied by: Spouse Allergies No Known Allergies Allergy (Verified 03/13/25 15:10) HPI Comments Details: I had the privilege of seeing Mr Richard in consultation for a second opinion for his chronic kidney disease. He is 69 years of age who has been a diabetic for a very long time. His DM had not been well controlled. He denies retinopathy & neuropathy but has H/O proteinuria. He has MAGDA on CKD in Jul 2024 due to ATN. He never had renal biopsy. He denies CAD, CHF, CVA, ISA, PAD or carotid stenosis. He used to take NSAID's in the past. He has metabolic acidosis which is well controlled on PO NaHCO3. He also has been taking K lowering medications twice a week. He monitors BP at home, mostly in the mornings before taking his medications. He denies chest pain, SOB, PND, orthopnea, nausea, vomiting or diarrhea. He denied any other systemic complaints. His last serum creatinine has been 2.7. His mom had CKD but was not on renal replacement. [facility] Medical History (Updated 03/13/25 @ 22:06 by Vladimir Brown MD) HTN (hypertension) MAGDA (acute kidney injury) Diabetic nephropathy Microalbuminuria due to type 2 diabetes mellitus Type 2 diabetes mellitus with chronic kidney disease, with long-term current use of insulin HLD (hyperlipidemia) Surgical History No pertinent past surgical history Social History Housing: House Patient Tobacco Use Status: Former Tobacco user Cigarette Packs Per Day: 1 Years Smoked: 50 e-Cigarette/Vaping Use: Never Used Second Hand Smoke Exposure: No service: No Current occupational status: retired Cognitive needs: No Hearing needs: Yes (bilateral hearing loss ) Vision needs: Yes (glasses) Review of Systems Const All systems reviewed & are unremarkable except as noted in HPI and below Physical Exam Vital Signs: Last Vital Signs Pulse 52 03/13/25 15:10 BP 142/60 H 03/13/25 15:10 Pulse Ox 95 03/13/25 15:10 Oxygen Delivery Method Room Air 03/13/25 15:10 BMI result Body Mass Index 33.3 Const General: comfortable and no acute distress Orientation/consciousness: patient oriented x3 HEENT Head: Yes normocephalic Mouth: Normal oral and palatal mucosa present Eyes EOM: EOMs intact bilaterally Neck Neck: Yes supple Resp Auscultation: clear to auscultation bilaterally Cardio Jugular venous distension: no JVD Rate: regular rate GI Palpation (GI): Soft to palpation Auscultation: normal bowel sounds General: Yes no CVA tenderness Back/Spine/Pelvis Back: no CVA tenderness Skin General skin exam: no rashes or lesions noted Neuro General: patient oriented x3 and moves all extremities Extrem General: Yes no pedal edema Results Reviewed Nephrology Results: Hgb, (14.0-18.0) 11.3 g/dl L 03/06/25 WBC, (4.8-10.8) 8.2 X10*3/uL 03/06/25 Plt Count, (160-400) 247 X10*3/uL 03/06/25 Sodium, (135-145) 143 mmol/L 03/06/25 Potassium, (3.3-5.1) 4.5 mmol/L 03/06/25 Chloride, (96-108) 110 mmol/L H 03/06/25 Carbon Dioxide, (22-29) 25 mmol/L 03/06/25 BUN, (9-16) 46 mg/dL H 03/06/25 Creatinine, (0.5-1.4) 2.76 mg/dL H 03/06/25 Calcium, (8.4-10.2) 9.5 mg/dL 03/06/25 Assessment & Plan Assessment & Plan (1) Chronic kidney disease, stage 4 (severe): Code(s): N18.4 - Chronic kidney disease, stage 4 (severe) Category: Medical (2) Diabetic nephropathy: Code(s): E11.21 - Type 2 diabetes mellitus with diabetic nephropathy Category: Medical Qualifiers: Diabetes mellitus type: type 2 Qualified Code(s): E11.21 - Type 2 diabetes mellitus with diabetic nephropathy (3) Type 2 diabetes mellitus with chronic kidney disease, with long-term current use of insulin: Code(s): E11.22 - Type 2 diabetes mellitus with diabetic chronic kidney disease; Z79.4 - penitentiary (current) use of insulin Category: Medical Qualifiers: Chronic kidney disease stage: stage 4 (GFR 15-29) Qualified Code(s): E11.22 - Type 2 diabetes mellitus with diabetic chronic kidney disease; N18.4 - Chronic kidney disease, stage 4 (severe); Z79.4 - tank terminal gauger (current) use of insulin (4) HTN (hypertension): Code(s): I10 - Essential (primary) hypertension Category: Medical Qualifiers: Hypertension type: primary hypertension Qualified Code(s): I10 - Essential (primary) hypertension (5) Metabolic acidosis: Code(s): E87.20 - Acidosis, unspecified Category: Medical (6) Hyperkalemia: Code(s): E87.5 - Hyperkalemia Category: Medical Plan Mr Richard has Diabetic nephropathy which has been progressive. He had MAGDA on CKD due to ATN Jul 2024 but did not need any renal replacement at that time. His UO is good. His volume status is optimal. His BP control is fair. He has not been on SGLT2i as he had pancreatic issues in the past. He is not on ACEI due to hyperkalemia as well as decline in GFR( his kidneys had not been handling it well). He can continue current dose of NaHCO3 and K lowering medications. I ordered further W/U including imaging studies as well as 24 hour urine for cr clearance. He may need a renal biopsy for prognostication. ( His mother had advanced CKD from DM). He will benefit from 24 hour BPM to ensure his BP is at goal( I shall organize it if he is going to continue F/U with me). All these have been discussed in detail and all his & his 's questions were answered Orders: Orders Complete Blood Count Auto Diff Today N18.4 - Chronic kidney disease, stage 4 (severe) Parathyroid Hormone Intact Today N18.4 - Chronic kidney disease, stage 4 (severe) Myeloperoxidase Antibody Today N18.4 - Chronic kidney disease, stage 4 (severe) Proteinase 3 PR3 Antibodies Today N18.4 - Chronic kidney disease, stage 4 (severe) Complement C4 Today N18.4 - Chronic kidney disease, stage 4 (severe) Vitamin D 25-OH Total Today N18.4 - Chronic kidney disease, stage 4 (severe) Prothrombin Time INR Today N18.4 - Chronic kidney disease, stage 4 (severe) Immunofixation Pnl, Serum Today N18.4 - Chronic kidney disease, stage 4 (severe) Immunofixation, Random Urine Today N18.4 - Chronic kidney disease, stage 4 (severe) Complement C3 Today N18.4 - Chronic kidney disease, stage 4 (severe) Phospholipase A2 Receptor Pnl Today N18.4 - Chronic kidney disease, stage 4 (severe) US renal doppler 2 Weeks N18.4 - Chronic kidney disease, stage 4 (severe) US renal BI 2 Weeks N18.4 - Chronic kidney disease, stage 4 (severe) Creatinine Clearance Urine 24U Today N18.4 - Chronic kidney disease, stage 4 (severe) Coding Level of Care Code New Pt Level 4 (21327) Diagnoses Chronic kidney disease, stage 4 (severe) N18.4 Diabetic nephropathy associated with type 2 diabetes mellitus E11.21 Diabetes mellitus type: type 2 Type 2 diabetes mellitus with stage 4 chronic kidney disease, with long-term current use of insulin E11.22; N18.4; Z79.4 Chronic kidney disease stage: stage 4 (GFR 15-29) Primary hypertension I10 Hypertension type: primary hypertension Metabolic acidosis E87.20 Hyperkalemia E87.5
[2025-03-13 15:10] VITALS: BP 142/60; PULSE 52; O2SAT 95; BMI 33.3
--- OUTSIDE RECORDS SUMMARY | 2025-03-13 16:21 | XMS_ITS | Clinical Summary ---
Author Organization [facility] Address [address] [place] [address] Phone Care Team Providers Care Fast Food Attendant Name Role Phone Sarah Long MD Primary Care Provider [phone] Allergies No known active allergies Medications atorvastatin [...] skin every night Active Insulin Admin Supplies (Stanley [place] Pen Cap/Lispro) misc Active sodium bicarbonate 650 MG tablet Take 1 tablet (650 mg total) by mouth in the morning and 1 tablet (650 mg total) in the evening. 180 tablet 3 08/23/2024 08/23/19 26 Active insulin lispro protamine-insuli n lispro (HumaLOG 50-50) (50-50) 100 UNIT/ML inj pen Inject under the skin 2 (two) times a day before meals Active aspirin 81 MG chewable tablet Chew 81 mg 1 (one) time each day Active sodium polystyrene sulfonate (KAYEXALATE) powder Take 15 g by mouth 2 (two) times a week 12/13/2024 Active hydrALAZINE 50 MG tablet Take 1 tablet (50 mg total) by mouth in the morning and 1 tablet (50 mg total) in the evening. 180 tablet 3 12/13/2024 12/14/19 26 Active ergocalciferol (Drisdol) 1.25 MG (99321 UT) capsuleIndicatio ns:Chronic kidney disease, stage 4 (severe) (HCC) Take 1 capsule (50,000 Units total) by mouth 1 (one) time per week 12 capsule 1 02/14/2025 02/15/20 26 Active Active Problems Problem Noted Date Diagnosed Date Acute nontraumatic kidney injury 08/23/2024 Stage 3a chronic kidney disease 08/23/2024 Type 2 diabetes mellitus wit h diabetic chronic kidney disease 08/23/2024 Hyperkalemia 08/23/2024 Vitamin D deficiency 08/23/2024 Metabolic acidosis 08/23/2024 Encounters Date Type Department Care Team Description 02/21/2025 Orders Only [facility] [address] [phone] Robby Justice MD Other acute kidney failure (HCC); Stage 3a chronic kidney disease (HCC); Type 2 diabetes mellitus with diabetic chronic kidney disease (HCC); Hyperkalemia; Other acidosis 02/09/2025 Refill [facility] [address] [phone] Robby Justice MD Chronic kidney disease, stage 4 (severe) (HCC) (Primary Dx) 02/02/2025 Refill [facility] [address] [phone] Robby Justice MD 12/22/2024 Orders Only [facility] [address] [phone] Amber Lea MD Chronic kidney disease, stage 4 (severe) (HCC) 12/21/2024 Telephone [facility] [address] [phone] Amber Lea MD 12/21/2024 Orders Only [facility] [address] [place] [address] Amber Lea MD Chronic kidney disease, stage 4 (severe) (HCC) (Primary Dx) 12/13/2024 2:00 PM EDT Office Visit [facility] [address] [place] [phone] Robby Justice MD Other acute kidney failure (HCC) (Primary Dx); Stage 3a chronic kidney disease (HCC); Type 2 diabetes mellitus with diabetic chronic kidney disease (HCC); Hyperkalemia; Other acidosis from Last 3 Months Social History Tobacco [...] Office Visit [facility] [address] [place] [phone] Robby Justice MD [phone] [phone] Health Maintenance Due Date Last [...] Diabetes: Visual Foot Exam 08/17/2024 Influenza Vaccine (#1) 2025 , 05/23/2018, 05/16/2017, Additional history exists Procedures Procedure Name Priority Date/Time Associated Diagnosis Comments RENAL FUNCTION PANEL Routine 12/22/2024 10:48 AM EDT Chronic kidney disease, stage 4 (severe) (HCC) from Last 3 Months Results * (ABNORMAL) Renal function panel (12/22/2024 10:48 AM EDT) Glucose 188(H) 70 - 99 mg/dL [facility] BUN 46(H) 8 - 27 mg/dL [facility] Creatinine 2.55(H) 0.76 - 1.27 mg/dL [facility] eGFR CKD-EPI CR 2020 26(L) >59 mL/min/1.7 3 [facility] BUN/Creatinine Ratio 18 10 - 24 [facility] Sodium 139 134 - 144 mmol/L [facility] Potassium 5.0 3.5 - 5.2 mmol/L [facility] Chloride 103 96 - 106 mmol/L [facility] Bicarbonate (CO2) 21 20 - 29 mmol/L [facility] Calcium 9.4 8.6 - 10.2 mg/dL [facility] Phosphorus 3.8 2.8 - 4.1 mg/dL [facility] Albumin 4.4 3.9 - 4.9 g/dL [facility] Blood Venous blood / Unknown 12/22/2024 10:48 AM EDT 12/22/2024 us Amber Lea MD LAB BLOOD ORDERABLES Final [facility] [place] [address] [place] [phone] from Last 3 Months Insurance [facility] Care Teams Fast Food Attendant Relationship Specialty Start Date End Date Sarah Long MD [facility] [place] [address] PCP - General Family Medicine 08/24/24
--- OUTSIDE RECORDS SUMMARY | 2025-03-13 16:21 | XMS_ITS | Clinical Summary ---
Author Organization [facility] Address [address] [facility] [address] [place] [address] Care Team Providers Care Corporate Safety Manager Name Role Phone Unavailable Primary Care Provider [...] age to complete this topic Insurance O [facility] Care Teams Corporate Safety Manager Relationship Specialty Start Date End Date JESUS SERRANO DO [address] [address] Primary Care Provider 06/13/23
--- OUTSIDE RECORDS SUMMARY | 2025-03-13 16:21 | XMS_ITS | Clinical Summary ---
Author Organization [facility] [address] [facility] lding Address [address] [place] [address] Phone Care Team Providers Care Resource Engineer Name Role Phone Unavailable Primary Care Provider [...] pe 2 diabetes mellitus without complication, with ferry terminal agent current use of insulin pump ([facility] V24, [facility] V28) Take 10 units every [...] 2 diabetes mellitus wit hout complication, with ferry terminal agent current use of insulin pump ([facility] V24, [facility] V28) 10/13/2023 Renal cyst 12/23/2021 CKD (chronic kidney disease) stage 3, GFR 30-59 ml/min ([facility] V24, [facility] V28) 09/20/2018 Coronary artery calcification seen on CAT scan 1 08/22/2013 Hepatic steatosis 06/21/2014 Overview (06/08/2024): Noted on CT scan Diverticulosis 06/18/2014 Overview (06/08/2024): Noted on screening CT Pulmonary emphysema ([facility] V24, [facility] V28) 1 08/20/2012 Overview (06/08/2024): On chest CT IMO update Lung nodule 06/04/2013 Overview (06/08/2024): Stable on CT 2013 <4mm; micronodule Obstructive sleep apnea 08/01/2012 Overview (06/08/2024): CPAP 17-18 cm Poorly controlled type 2 santhosh betes mellitus ([facility] V24, [facility] V28) 08/06/2011 Overview (06/08/2024): Labs from [facility] are scanned Vitamin D deficiency 08/06/2011 Hypertension, [...] ? hepatomegaly OTHER SURGICAL HISTORY 2006 PROCEDURE: RI ECHO TRANSTHORAC R-T 2D W/WO M-MODE REC [...] Date Smoking Tobacco: Every Day Cigarettes 2 55.7 Started: 07/18/1969 Smokeless Tobacco: Never Tobacco Cessation:Ready [...] care for your loved ones. For example, child day care provider or elderly care for an older adult? [...] Chest CT in 12 months. [facility] ([id number]) -------- FINAL REPORT -------- Dictated By: Dorys Williamson Dictated Date: 09/19/2024 16:11 ET Assigned Physician: Dorys Williamson Reviewed and Electronically Signed By: Dorys Williamson Signed Date: 09/19/2024 16:18 ET Workstation ID: [id number] Transcribed By: Self Edit Transcribed Date: 09/19/2024 16:11 ET Narrative 09/19/2024 4:18 PM EST History: 69 year-old 99 pack-year current smoker, asymptomatic, for lung cancer screening. Father had lung carcinoma. Mother had breast carcinoma. Comparison: 06/30/23 Technique: Helical volumetric imaging of the thorax was performed, using low- dose technique, without IV contrast. DLP: 169.48 mGy/cm CTDIvol: 4.83 mGy FlatBurger VCT Iterative reconstruction technique Findings: Lungs and [...] contrast. DLP: 169.48 mGy/cm CTDIvol: 4.83 mGy NanoPowerspeEgalet VCT Iterative reconstruction technique Findings: Lungs and [...] Dose Chest [place] 12 [place] ([id number]) -------- FINAL REPORT -------- Dictated By: Dorys Williamson Dictated Date: 09/19/2024 16:11 ET Assigned Physician: Dorys Williamson Reviewed and Electronically Signed By: Dorys Williamson Signed Date: 09/19/2024 16:18 ET Workstation ID: [id number] Transcribed By: Self Edit Transcribed Date: 09/19/2024 16:11 ET Deborah Diaz MD IMG CT PROCEDURES Final Result * Diabetes Foot Exam (10/13/2023) Diabetes: Annual Foot Exam Abstracted Historical Provider HEALTH MAINTENANCE Final Result * Annual BMP Blood Test (10/05/2023) Pathologist [facility] Annual BMP Blood Test Abstracted Result [facility] Provider HEALTH MAINTENANCE Final Result * Hemoglobin A1c (07/12/2023) [facility] Hemoglobin A1C 0.0 % Comment:No Interpretation Blood Venous blood specimen / Unknown Result [facility] Provider LAB BLOOD ORDERABLES Shania l Result * Diabetes Eye Exam (06/13/2023) [facility] Diabetes: Annual Retina Eye Exam Abstracted Result [facility] Provider HEALTH MAINTENANCE Final Result * Urine Albumin Creatinine Ratio (07/30/2022) [facility] Urine Albumin Creatinine Ratio Abstracted Result [facility] Provider HEALTH MAINTENANCE Final Result * Lipid panel (04/30/2022) [facility] LDL/HDL Ratio 0 Comment:No Interpretation Triglycerides 0 mg/dL Comment:No Interpretation Cholesterol 0 mg/dL Comment:No Interpretation HDL 0 mg/dL Comment:No Interpretation LDL Cholesterol 0 mg/dL Comment:No Interpretation Blood Venous blood specimen / Unknown Result [facility] Provider LAB BLOOD ORDERABLES Shania l Result * Colonoscopy (09/07/2018) [facility] Colonoscopy No Interpretation , Abstracted Anatomical Region Laterality Modality Other Result [facility] Provider HEALTH MAINTENANCE Final Result * Hepatitis C Screening (02/07/2017) [facility] Hepatitis C Screening Abstracted Result [facility] Provider HEALTH MAINTENANCE Final Result from Last 3 Months or Most Recently Relevant to Health Maintenance Insurance [place] MEDICARE ADVANTAGE Advance Directives Documents on File Type Date Recorded Patient Design Eng [facility] Health Care Decision (hx) 06/30/2023 AD TIMOTEO DIRECTIVE
== END 2025-03-13 16:06 | disposition home or self-care (01) ==
LOC: HO.HKA 15:04
PROVIDERS: PCP Physician Assistant; Visit Provider Internal Medicine Nephrology
DX: I12.9 Hypertensive chronic kidney disease with stage 1 through stage 4 chronic kidney disease, or unspecified chronic kidney disease (principal); E11.22 Type 2 diabetes mellitus with diabetic chronic kidney disease; N18.4 Chronic kidney disease, stage 4 (severe); E11.21 Type 2 diabetes mellitus with diabetic nephropathy; Z79.4 Long term (current) use of insulin; E87.20 Acidosis, unspecified; E87.5 Hyperkalemia
CPT/HCPCS: 99204

== ENCOUNTER 2025-06-19 15:09 | Outpatient (AMB) | payer BC, SELFPAY ==
--- NOTE | 2025-06-19 15:34 | A.OFFPC_ITS ---
Vital Signs 06/19/25 15:37 06/19/25 15:43 Height 5 ft 7.72 in Weight 221 lb 4 oz BMI 33.9 BP 148/62 H 134/64 Blood Pressure Location Lt brachial Lt brachial Position Sitting Sitting Respiration 14 Pulse 54 Pulse Source Pulse Oximeter Pulse Oximetry (%) 95 Oxygen Delivery Method Room Air Intake Visit Reasons: dm Intake Note: Diabetes follow up Wooden Frame Builder Required: No Allergies No Known Allergies Allergy (Verified 06/19/25 15:35) Tobacco use date assessed: 06/19/25 Fall risk assessment: No Falls in past year Last assessed Fall Risk: 06/19/25 Dental Screening Dental Screen Date: 11/22/24 HPI dm HPI Details Patient is a 70year-old male who presents today for a follow up. He has a significant past medical history of pancreatitis, chronic kidney disease stage IV with recent MAGDA,, type 2 diabetes, hypertension, hyperlipidemia Endo: Last A1c was 7. He is currently on Lantus 36 units in the morning and lispro 3 times a day sliding scale -following with [facility] endocrinology a nd is scheduled for a follow up in a couple weeks. CV: Blood pressure today in the office is 134/64. He is on metoprolol 150mg daily, amlodipine 10 mg day, and hydralazine 50 mg twice a day. He has a follow up next week. Cholesterol is controlled with atorvastatin 40 mg. He is on a baby aspirin. Nephro: Following with Dr. Justice . He had a GI bug in July 2024 and then was hospitalized for an MAGDA. Last GFR was 28 following the MAGDA. His CKD has remained stable at stage IV MSK: He does report today ongoing right shoulder pain. It has been present for quite some time but has gradually worsened. Sometimes it hurts lifting it above his head and was certain movements. There was no specific trauma. In the past he has needed cortisone injections and that has been helpful. He would like to go back to [place] [facility]. [facility] Medical History (Updated 06/19/25 @ 16:12 by Kate Glasgow PA-C) HTN (hypertension) MAGDA (acute kidney injury) Diabetic nephropathy Microalbuminuria due to type 2 diabetes mellitus Type 2 diabetes mellitus with chronic kidney disease, with long-term current use of insulin HLD (hyperlipidemia) Surgical History (Updated 06/19/25 @ 15:42 by Paola Linder CMA) H/O tooth extraction No pertinent past surgical history Social History (Updated 06/19/25 @ 15:43 by Paola Linder CMA) Housing: House Alcohol intake: current Comment: infrequently Patient Tobacco Use Status: Former Tobacco user Cigarette Packs Per Day: 1 Years Smoked: 50 e-Cigarette/Vaping Use: Never Used Second Hand Smoke Exposure: No service: No Current occupational status: retired Cognitive needs: No Hearing needs: Yes (bilateral hearing loss ) Vision needs: Yes (glasses) Questionnaire Thrive Questionnaire Date Thrive assessed: 11/15/24 I am a: Patient What is your living situation today?: I choose not to answer this question Within the past 12 months, did the food you bought not last and you didn't have the money to get more?: I choose not to answer this question Within the past 12 months, did you worry whether your food would run out before you got money to buy more?: I choose not to answer this question Do you have trouble paying for medicines?: I choose not to answer this question Do you have trouble getting transportation to medical appointments?: I choose not to answer this question Do you have trouble paying your heating and electricity bill?: I choose not to answer this question Do you have trouble taking care of your child, family member or friend?: I choos e not to answer this question Do you have trouble with day-to-day activities such as bathing, preparing meals, shopping, managing finances, etc.?: I choose not to answer this question Are you currently unemployed and looking for a job?: I choose not to answer this question Are you interested in more education?: I choose not to answer this question Please select the resources that you would like help with: None Currently or been in a relationship where the following occur: I choose not to answer THRIVE Score: 0 AUDIT C Alcohol Use Questionnaire (AUDIT-C) 1. How often do you have a drink containing alcohol?: Never 3. How often do you have six or more drinks on one occasion?: Never Total Score: 0 CHERELLE-7 AMB Questionnaire CHERELLE-7 Date CHERELLE - 7 assessed: 11/22/24 Source: Developed by Drs. Doron Medellin, Keyla Rich, Jaziel Timmons and colleagues, with an educational sanjeev from [employer]. Physical exam (Primary Care) Vital Signs: Last Vital Signs Pulse 54 06/19/25 15:37 Resp 14 06/19/25 15:37 BP 134/64 06/19/25 15:43 Pulse Ox 95 06/19/25 15:37 Oxygen Delivery Method Room Air 06/19/25 15:37 BMI result Body Mass Index 33.9 Tobacco/Smoking Status: Tobacco use Status Tobacco use date assessed 06/19/25 06/19/25 15:43 Patient Tobacco Use Status Former Tobacco user 06/19/25 15:43 e-Cigarette/Vaping Use Never Used 06/19/25 15:43 Thrive Assessment: Date of Thrive Assessment Date Thrive assessed 11/15/24 06/19/25 15:43 Currently or been in a relationship where the following occur: I choose not to answer Const Orientation/consciousness: patient oriented x3 HENMT Ears: hearing grossly normal bilaterally Neck Thyroid: Thyroid normal Lymphatic: no lymphadenopathy noted Resp Auscultation: clear to auscultation bilaterally Cardio Rate: regular rate Rhythm: regular rhythm Heart sounds: S1 normal heart sound present and S2 normal heart sound present GI Inspection: Yes normal to inspection Palpation (GI): Soft to palpation and Other GI palpation findings present (nontender, no cva tenderness) Auscultation: normoactive bowel sounds Rectal Exam - Male: Yes deferred Skin General skin exam: no rashes or lesions noted Neuro General: patient oriented x3, gait normal and no focal motor deficits Extrem Other: Tenderness to palpation in the right subacromial space. Full range of motion. Empty can test negative. Speed's test does elicit pain Coding Level of Care Code Est Pt Level 4 (47149) Complex visit Add On G2211 Diagnoses Type 2 diabetes mellitus with stage 4 chronic kidney disease, with long-term current use of insulin E11.22; N18.4; Z79.4 Chronic kidney disease stage: stage 4 (GFR 15-29) Microalbuminuria due to type 2 diabetes mellitus E11.29; R80.9 Primary hypertension I10 Hypertension type: primary hypertension HLD (hyperlipidemia) E78.5 Chronic kidney disease, stage 4 (severe) N18.4 Right shoulder pain M25.511 Assessment & Plan Assessment & Plan (1) Type 2 diabetes mellitus with chronic kidney disease, with long-term current use of insulin: Code(s): E11.22 - Type 2 diabetes mellitus with diabetic chronic kidney disease; Z79.4 - skilled nursing (current) use of insulin Category: Medical Qualifiers: Chronic kidney disease stage: stage 4 (GFR 15-29) Qualified Code(s): E11.22 - Type 2 diabetes mellitus with diabetic chronic kidney disease; N18.4 - Chronic kidney disease, stage 4 (severe); Z79.4 - skilled nursing (current) use of insulin Plan: A1c improved continue follow up with endo (2) Microalbuminuria due to type 2 diabetes mellitus: Code(s): E11.29 - Type 2 diabetes mellitus with other diabetic kidney complication; R80.9 - Proteinuria, unspecified Category: Medical Plan: As above (3) HTN (hypertension): Code(s): I10 - Essential (primary) hypertension Category: Medical Qualifiers: Hypertension type: primary hypertension Qualified Code(s): I10 - Essential (primary) hypertension Plan: Blood pressures at home have been about 130/60. They have a list of them today. Continue current regimen. (4) HLD (hyperlipidemia): Code(s): E78.5 - Hyperlipidemia, unspecified Category: Medical Plan: WNL. Continue current regimen (5) Chronic kidney disease, stage 4 (severe): Code(s): N18.4 - Chronic kidney disease, stage 4 (severe) Category: Medical Plan: Has been stable. We will monitor. Has follow up with Nephrology (6) Right shoulder pain: Code(s): M25.511 - Pain in right shoulder Category: Medical Plan: Referral to [facility] placed Discussed that he may need an x-ray prior to going but does not believe he would need it. Orders: Referrals Physiatry Referral M25.511 - Pain in right shoulder
[2025-06-19 15:37] VITALS: BP 148/62; PULSE 54; RESP 14; O2SAT 95; BMI 33.9
[2025-06-19 15:43] VITALS: BP 134/64
--- OUTSIDE RECORDS SUMMARY | 2025-06-19 18:14 | XMS_ITS | Clinical Summary ---
Author Organization [employer] Address [address] [place] [address] [address] [place] [address] Care Team Providers Care Terrazzo Layer Name Role Phone Jen Rodriguez Unavailable Unavailable Allergies No known active allergies Medications omega-3 [...] 06/13/2023 06/13/2023 Hyperlipidemia 06/13/2023 06/13/2023 Morbid obesity (CMS/HCC) 06/13/2023 023 Anxiety disorder 06/13/2023 06/13/2023 Avitaminosis D 06/13/2023 06/13/2023 Carpal tunnel syndrome 06/13/2023 Obstructive sleep apnea 06/13/2023 06/13/20 Type 2 diabetes mellitus without complication 06/13/2023 Nondependent alcohol abuse, episodic 06/13/2023 06/13/2023 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 06/13/2023 06/13/2023 Cataract, nuclear sclerotic, both eyes 06/13/2023 Bilateral presbyopia 06/13/2023 06/13/2023 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 06/13/2023 Encounters Date Type Department Care Team Description 05/27/2025 10:30 AM EST Office Visit [facility] OPTOMETRY [address] [place] [address] Mackenzie Alicia, OD Type 2 diabetes mellitus with both eyes affected by mild nonproliferative retinopathy without macular edema, without long-term current use of insulin (HCC) (Primary Dx); Combined forms of age-related cataract of both eyes; Bilateral presbyopia 05/24/2025 Telephone [facility] MEDICAL [address] [place] [address] Pcp Mcallister Unassigned hospital discharge, obtain hospital records 05/07/2025 Patient Outreach [facility] Case Management [address] [place] [address] Jen Rodriguez 04/18/[address] [facility] MEDICAL [address] [place] [address] Jen Rodriguez from Last 3 Months Family History Medical History Relation Name Comments Cataracts Mother Relation Name Status Comments Mother Social History Tobacco Use Types Packs/Day Years Used Date Smoking Tobacco: Former Cigarettes Tobacco Cessation:Counseling Given: Not Answered Comments:Smoked for 30 years Sex and Gender Information Value Date Recorded Sex Assigned at Male 06/10/2023 10:36 AM EST Legal Sex Male 8:35 PM EDT Gender Identity Male 06/10/2023 10:36 AM EST Sexual Orientation Straight 06/10/2023 10 :36 AM EST Last Filed Vital Signs Vital Sign Reading Time Taken Comments Blood Pressure 148/64 05/27/2025 10:34 AM EST Pulse - - Temperature 36.2 C (97.2 F) 06/14/2023 10:30 AM EST Respiratory Rate - - Oxygen Saturation - - Inhaled Oxygen Concentration - - Weight - - Height - - Body Mass Index - - Plan of Treatment Health Maintenance Due Date Last Done Comments CT Colonography 1955 Colonoscopy 1955 Colorectal Cancer Screening 1955 Depression Screening 1955 FIT DNA/Cologuard 1955 FIT 1955 FOBT 1955 Lipid Panel 1955 SDOH Screening 1955 Sigmoidoscopy 1955 Diabetes: Foot Exam 1965 Alcohol/Substance Use Screening 1967 Hepatitis C Screening 1973 Diabetes: Urine Protein Screening 1974 Hepatitis A Vaccines (1 of 2 - Risk 2-dose series) 1974 RSV Patients and Patients Aged 60 years or older (1 - Risk 50-74 years 1-dose series) 2005 Zoster Vaccines (1 of 2) 2005 Hepatitis B Vaccines (1 of 3 - Risk 3-dose series) 2015 Diabetes: Hemoglobin A1C 10/11/2023 07/12/2023 DTaP/Tdap/Td Vaccines (2 - Td or Tdap) 02/12/2024 02/11/2014 COVID-19 Vaccine (3 - season) 2025 03/13/2021, 02/20/2021 Influenza Vaccine (#1) 2025 , 05/23/2018, 05/16/2017, Additional history exists Eye Exam 05/27/2026 05/27/2025, 05/18, 05/27/2025, Additional history exists Tobacco Screening 05/27/2026 05/27/2025 Pneumococcal Vaccine: 50+ Years Completed 10/13/2023, 05/06/2010, 04/17/2010 HIB Vaccines Aged Out No longer eligi [...] on patient's age to complete this topic Goals Goal Patient Goal Type Associated Problems Recent Progress Patient-Stated? Author Help patients manage their type 2 diabetes Care Plan Help patients manage their type 2 diabetes No Cassandra Aggarwal Weekly blood pressure task Care Plan Weekly blood pressure task No Cassandra Aggarwal Help patients manage their type 2 diabetes Care Plan Help patients manage their type 2 diabetes No Cassandra Aggarwal Patient has chronic kidney disease Care Plan Patient has chronic kidney disease No Cassandra Aggarwal Weekly blood pressure task Care Plan Weekly blood pressure task No Cassandra Aggarwal Patient has chronic kidney disease Care Plan Patient has chronic kidney disease No Cassandra Aggarwal Weekly blood pressure task Care Plan Weekly blood pressure task No Mackenzie Alicia, OD Weekly blood pressure task Care Plan Weekly blood pressure task No KristopherteJerryel, OD Patient has diabetic eye disease Care Plan Patient has diabetic eye disease No KristopherteJerryel, OD Patient has diabetic eye disease Care Plan Patient has diabetic eye disease No Jerry Aliciael, OD Patient has chronic kidney disease Care Plan Patient has chronic kidney disease No KristopherteJerryel, OD Patient has chronic kidney disease Care Plan Patient has chronic kidney disease No KristopherteJerryel, OD Weekly blood pressure task Care Plan Weekly blood pressure task No [place], Susan, BELLMAN CAPTAIN Weekly blood pressure task Care Plan Weekly blood pressure task No [place], Susan, BELLMAN CAPTAIN Patient has chronic kidney disease Care Plan Patient has chronic kidney disease No [place], Susan, BELLMAN CAPTAIN Patient has chronic kidney disease Care Plan Patient has chronic kidney disease No [place], Susan, BELLMAN CAPTAIN Procedures Procedure Name Priority Date/Time Associated Diagnosis Comments FUNDUS PHOTOS - OU - BOTH EYES Routine 05/29/2025 Type 2 diabetes mellitus with both eyes affected by mild nonproliferative retinopathy without macular edema, without long-term current use of insulin (HCC) from Last 3 Months Results * Fundus Photos - OU - Both Eyes (05/29/2025) Impressions Mackenzie Alicia, OD - 05/29/2025 Right eye (OD): Mild non-proliferative diabetic retinopathy (NPDR), establishing baseline Left eye (OS): mild non-proliferative diabetic retinopathy (NPDR); establishing baseline Mackenzie Alicia OD OPHTH PHOTOGRAPHY Final Result from Last 3 Months Additional Health Concerns Active Problems Noted Date Diagnosed Date Help patients manage their type 2 diabetes 05/29 Weekly blood pressure task 05/29/2025 Help patients manage their type 2 diabetes 05/29 Patient has chronic kidney disease 05/29/2025 Weekly blood pressure task 05/29/2025 Patient has chronic kidney disease 05/29/2025 Weekly blood pressure task 05/29/2025 Weekly blood pressure task 05/29/2025 Patient has diabetic eye disease 05/29/2025 Patient has diabetic eye disease 05/29/2025 Patient has chronic kidney disease 05/29/2025 Patient has chronic kidney disease 05/29/2025 Weekly blood pressure task 06/03/2025 Weekly blood pressure task 06/03/2025 Patient has chronic kidney disease 06/03/2025 Patient has chronic kidney disease 06/03/2025 Insurance [facility] Care Teams Terrazzo Layer Relationship Specialty Start Date End Date Jen Rodriguez Health Navigator Financial Counseling and Assistance Services 04/18/25 JESUS SERRANO DO [address] [address] Primary Care Provider 06/13/23
== END 2025-06-19 16:16 | disposition home or self-care (01) ==
LOC: HO.HMCFM 15:10
PROVIDERS: PCP Physician Assistant; Visit Provider Physician Assistant
DX: E11.22 Type 2 diabetes mellitus with diabetic chronic kidney disease (principal); N18.4 Chronic kidney disease, stage 4 (severe); Z79.4 Long term (current) use of insulin; E11.29 Type 2 diabetes mellitus with other diabetic kidney complication; R80.9 Proteinuria, unspecified; I12.9 Hypertensive chronic kidney disease with stage 1 through stage 4 chronic kidney disease, or unspecified chronic kidney disease; E78.5 Hyperlipidemia, unspecified; M25.511 Pain in right shoulder